=== PATIENT | female | born 1945 | race Caucasian/White ===

== ENCOUNTER 2023-08-01 13:12 | Outpatient (AMB) | payer MEDICARE, SELFPAY ==
[2023-08-01 13:41] VITALS: BP 122/58; PULSE 92; RESP 18; O2SAT 97; BMI 36.5
--- NOTE | 2023-08-01 13:41 | MHC.OFFVIS ---
Intake Vital Signs 08/01/23 13:41 Height 5 ft 6 in Weight 226 lb BMI 36.5 BP 122/58 L Blood Pressure Location Lt brachial Position Sitting Respiration 18 Pulse 92 Pulse Source Pulse Oximeter Pulse Oximetry (%) 97 Oxygen Delivery Method Room Air Intake Visit Reasons: Neuropathy Allergies No Known Allergies Allergy (Verified 08/01/23 13:41) HPI HPI Comments History of Present Illness Details Cherelle is a very pleasant 77-year-old female who presents the office today, accompanied by her daughter, for evaluation management of her chronic bilateral peripheral neuropathy. Patient reports that she has been suffering with this pain for many months. She endorses burning, numbness and tingling to both feet. It started on the bottom of her feet and is now up to the ankles. She endorses a feeling of a ?squishy? sensation to the bottom of her feet bilaterally as well. The patient has seen the transformation analyst, she has tried topical creams and sprays without improvement of her symptoms. She was recently started on diclofenac from her primary care doctor which provides her some relief. Pain today is rated a 5/10, intermittent and worse in the mornings and the middle the night. Terms of muscle damage condition is described as spasming, hot, burning, stabbing, sharp, tingling, shooting, cramping, throbbing, pins and needles. Pain is negatively impacting patient's general activity, mood, sleep and walking. Patient also reports bilateral knee pain, she has an appointment with orthopedic surgeon next month. She was seen in the PA there and has upcoming appointment with the surgeon in preparation for knee replacement surgery. Currently uses a wheelchair for ambulation. Patient is diabetic, taking Ozempic. Most recent A1c was 7.0 Review of Systems Const All systems reviewed & are unremarkable except as noted in HPI and below Physical Exam Vital Signs: Last Vital Signs Pulse 92 08/01/23 13:41 Resp 18 08/01/23 13:41 BP 122/58 L 08/01/23 13:41 Pulse Ox 97 08/01/23 13:41 Oxygen Delivery Method Room Air 08/01/23 13:41 BMI result Body Mass Index 36.5 General: awake, alert, oriented. Answers questions appropriately. Fully engaged in examination. Skin: warm, dry, intact. HEENT: Normocephalic. Hearing intact. Cardiac: External chest normal in appearance. Respiratory: No cough, audible wheezing or stridor. Abdomen: without gross distension. MS: No obvious swelling or deformities. Able to transition from sit to stand unassisted. Neurological: Oriented to person, place, time and situation. Thought process intact. Utilizes a wheelchair for ambulation Psychiatric: Appropriate mood and affect. Good judgment and insight. Bilateral feet: Light touch sensation intact. Skin intact without bruising, abrasions, wounds, ulcers or sores. Assessment & Plan Assessment & Plan (1) Diabetic neuropathy: Code(s): E11.40 - Type 2 diabetes mellitus with diabetic neuropathy, unspecified (2) Bilateral primary osteoarthritis of knee: Code(s): M17.0 - Bilateral primary osteoarthritis of knee (3) Diabetes: Code(s): E11.9 - Type 2 diabetes mellitus without complications Plan Cherelle presented to the office today for evaluation and management of her painful bilateral diabetic neuropathy. Discussed options for treatment including topical treatment, diagnostic interventional testing, epidural steroid injections, peripheral nerve stimulation with Sprint, RFA and more permanent neuromodulation. Informational pamphlets provided. Will submit PA for Qutenza topical application. Patient advised on procedure including preparation and EMLA application prior to appointment. She is aware treatment is done in office and he will be here for 30minutes during each visit. All questions and concerns have been answered and patient agrees with the plan. Patient aware she will be called to schedule appointment for Qutenza pending insurance approval. Coding Level of Care Code New Pt Level 4 (88451) Diagnoses Diabetic neuropathy E11.40 Bilateral primary osteoarthritis of knee M17.0 Diabetes E11.9
== END 2023-08-01 14:06 | disposition home or self-care (01) ==
PROVIDERS: PCP Internal Medicine; Visit Provider Registered Nurse Emergency
DX: E11.40 Type 2 diabetes mellitus with diabetic neuropathy, unspecified (principal); M17.0 Bilateral primary osteoarthritis of knee
CPT/HCPCS: 99204

== ENCOUNTER → 2023-08-01 13:12 | Outpatient (BNVA) | payer MEDICARE, SELFPAY | PROVIDERS: PCP Internal Medicine; Visit Provider Registered Nurse Emergency | DX: E11.42 Type 2 diabetes mellitus with diabetic polyneuropathy (principal); M17.0 Bilateral primary osteoarthritis of knee | CPT/HCPCS: 99202 ==

== ENCOUNTER 2023-09-26 13:59 | Outpatient (AMB) | payer MEDICARE, SELFPAY ==
[2023-09-26 14:06] VITALS: BP 137/64; PULSE 83; RESP 16; O2SAT 97; BMI 36.3
--- NOTE | 2023-09-26 14:06 | A.OFFVIS_ITS ---
Vital Signs 09/26/23 14:06 09/26/23 14:31 Height 5 ft 6 in Weight 225 lb BMI 36.3 BP 137/64 135/60 Blood Pressure Location Lt brachial Position Sitting Respiration 16 Pulse 83 Pulse Source Pulse Oximeter Pulse Oximetry (%) 97 Oxygen Delivery Method Room Air Intake Visit Reasons: Qutenza - 1st Treatment Allergies No Known Allergies Allergy (Verified 08/01/23 13:41) HPI Comments Details: Patient presents back to the office today for first Qutenza application. She is accompanied by her daughter Patient applied EMLA cream at home per instructions. He denies any changes in her painful bilateral peripheral neuropathy since last visit. Denies new meds, allergies or diagnoses. Patient denies any recent injuries or wounds to her feet. Prior: Cherelle is a very pleasant 77-year-old female who presents the office today, accompanied by her daughter, for evaluation management of her chronic bilateral peripheral neuropathy. Patient reports that she has been suffering with this pain for many months. She endorses burning, numbness and tingling to both feet. It started on the bottom of her feet and is now up to the ankles. She endorses a feeling of a ?squishy? sensation to the bottom of her feet bilaterally as well. The patient has seen the magnetic prospector, she has tried topical creams and sprays without improvement of her symptoms. She was recently started on diclofenac from her primary care doctor which provides her some relief. Pain today is rated a 5/10, intermittent and worse in the mornings and the middle the night. Terms of muscle damage condition is described as spasming, hot, burning, stabbing, sharp, tingling, shooting, cramping, throbbing, pins and needles. Pain is negatively impacting patient's general activity, mood, sleep and walking. Patient also reports bilateral knee pain, she has an appointment with orthopedic surgeon next month. She was seen in the PA there and has upcoming appointment with the surgeon in preparation for knee replacement surgery. Currently uses a wheelchair for ambulation. Patient is diabetic, taking Ozempic. Most recent A1c was 7.0 Review of Systems Const All systems reviewed & are unremarkable except as noted in HPI and below Physical Exam Vital Signs: Last Vital Signs Pulse 83 09/26/23 14:06 Resp 16 09/26/23 14:06 BP 137/64 09/26/23 14:06 Pulse Ox 97 05/10/24 14:06 Oxygen Delivery Method Room Air 09/26/23 14:06 BMI result Body Mass Index 36.3 General: awake, alert, oriented. Answers questions appropriately. Fully engaged in examination. Skin: Bilateral feet: Light touch sensation intact. No visible wounds, rashes, lesions, open areas. HEENT: Normocephalic. Hearing intact. Cardiac: External chest normal in appearance. Respiratory: No cough, audible wheezing or stridor. Abdomen: without gross distension. MS: No obvious swelling or deformities. Neurological: Oriented to person, place, time and situation. Thought process intact. No gait abnormalities appreciated. Psychiatric: Appropriate mood and affect. Good judgment and insight. Office Meds capsaicin-skin cleanser 8 % topical kit Performing Provider: Mari Segal APRN, CNP Performing Location: [facility] Administered by: Mari Segal APRN, CNP on 09/26/23 14:43 Dose Route Admin Location Dispensed Lot Number Expiration Date [facility] [employer] 4 ea topical 4 ea [id number] 10/17/25 50528-680-65 [employer] Comments: Patient applied topical EMLA cream to both feet prior to arrival for her scheduled appointment. Feet exposed, no wounds, rashes or breaks in skin noted. Light touch sensation intact bilaterally. Four single use topical patches (179mg capsaicin) divided between feet, 2 patches per foot, wrapped and secured per package instructions. Patient monitored throughout the procedure with BP checks every 15 minutes. She tolerated the 30 minute application well. Assessment & Plan Assessment & Plan (1) Diabetic neuropathy: Code(s): E11.40 - Type 2 diabetes mellitus with diabetic neuropathy, unspecified Category: Medical Plan Patient presented to the office today for 1st Qutenza topical application for bilateral peripheral neuropathy. Qutenza application as per above. Patient tolerated well, discharged home with no reported untoward effects. Cleansing gel applied prior to discharge, patient given cleansing gel for home use if needed. Lidocaine 5% topical gel, apply to feet at bedtime. All questions and concerns were answered. Patient will follow up in the office as planned for next Qutenza application. Orders: Orders AMB Capsaicin Patch - Practice Supplied Today E11.40 - Type 2 diabetes mellitus with diabetic neuropathy, unspecified Medications: New lidocaine 5% 1 appl topical BEDTIME 30 grams 0RF Coding Level of Care Code Est Pt Level 4 (75959) Diagnoses Diabetic neuropathy E11.40
[2023-09-26 14:31] VITALS: BP 135/60
== END 2023-09-26 15:10 | disposition home or self-care (01) ==
PROVIDERS: PCP Internal Medicine; Visit Provider Registered Nurse Emergency
DX: E11.40 Type 2 diabetes mellitus with diabetic neuropathy, unspecified (principal)
CPT/HCPCS: 17999; 99214

== ENCOUNTER → 2023-09-26 13:59 | Outpatient (BNVA) | payer MEDICARE, SELFPAY | PROVIDERS: PCP Internal Medicine; Visit Provider Registered Nurse Emergency | DX: E11.40 Type 2 diabetes mellitus with diabetic neuropathy, unspecified (principal) | CPT/HCPCS: 17999; 99212; J7336 ==

== ENCOUNTER 2023-12-19 13:52 | Outpatient (AMB) | payer MEDICARE, SELFPAY ==
--- NOTE | 2023-12-19 13:53 | MHC.OFFVIS ---
Vital Signs 12/19/23 13:59 12/19/23 14:32 12/19/23 14:46 Height 5 ft 6 in Weight 218 lb BMI 35.2 BP 151/68 H 129/61 136/65 Blood Pressure Location Lt brachial Lt brachial Lt brachial Position Sitting Sitting Sitting Pulse 91 87 79 Pulse Source Pulse Oximeter Pulse Oximeter Pulse Oximeter Pulse Oximetry (%) 98 98 98 Oxygen Delivery Method Room Air Room Air Room Air Comment 15 mins after qutenza application 30 mins after qutenza application Intake Visit Reasons: QUTENZA Intake Note: Pain today 10/26 Lead Sustainability Specialist Required: No Accompanied by: Family/Other Allergies No Known Allergies Allergy (Verified 12/19/23 14:00) HPI Comments Details: Patient presents back to the office today for second Qutenza application. She is accompanied by her daughter Patient forgot to apply the EMLA cream at home. Offered to reschedule appointment due to risk of procedural discomfort. Patient would like to proceed and will immediately notify staff if she has not able to tolerate the full 30 minutes of the procedure. Does endorse some discomfort/burning after arriving home after her 1st Qutenza application. Applied the cleansing gel that was sent home, soaked her feet and milk and took duloxetine. Symptoms improve with duloxetine, she has requesting a refill. She denies any changes in her painful bilateral peripheral neuropathy since last visit. A1c 11/2023 was 8.3. Her Ozempic was increased to 1 mg/week. Patient denies any recent injuries or wounds to her feet. Prior: Cherelle is a very pleasant 77-year-old female who presents the office today, accompanied by her daughter, for evaluation management of her chronic bilateral peripheral neuropathy. Patient reports that she has been suffering with this pain for many months. She endorses burning, numbness and tingling to both feet. It started on the bottom of her feet and is now up to the ankles. She endorses a feeling of a ?squishy? sensation to the bottom of her feet bilaterally as well. The patient has seen the livestock yard attendant, she has tried topical creams and sprays without improvement of her symptoms. She was recently started on diclofenac from her primary care doctor which provides her some relief. Pain today is rated a 5/10, intermittent and worse in the mornings and the middle the night. Terms of muscle damage condition is described as spasming, hot, burning, stabbing, sharp, tingling, shooting, cramping, throbbing, pins and needles. Pain is negatively impacting patient's general activity, mood, sleep and walking. Patient also reports bilateral knee pain, she has an appointment with orthopedic surgeon next month. She was seen in the PA there and has upcoming appointment with the surgeon in preparation for knee replacement surgery. Currently uses a wheelchair for ambulation. Patient is diabetic, taking Ozempic. Most recent A1c was 7.0 Review of Systems Const All systems reviewed & are unremarkable except as noted in HPI and below Physical Exam Vital Signs: Last Vital Signs Pulse 87 12/19/23 14:32 BP 129/61 12/19/23 14:32 Pulse Ox 98 12/19/23 14:32 Oxygen Delivery Method Room Air 12/19/23 14:32 BMI result Body Mass Index 35.2 Office Procedures Topical Capsaicin Date 1:: 09/26/23 Date 2:: 12/19/23 Laterality: Bilateral Quality of pain: Burning Office Meds capsaicin-skin cleanser 8 % topical kit Performing Provider: Mari Segal APRN, CNP Performing Location: [facility] Administered by: Mari Segal APRN, CNP on 12/19/23 14:11 Dose Route Admin Location Dispensed Lot Number Expiration Date [facility] [employer] 4 ea topical 4 ea [id number] 11/16/25 28827-424-16 [employer] Comments: Feet exposed, no wounds, rashes or breaks in skin noted. Light touch sensation intact bilaterally. Four single use topical patches (179mg capsaicin) divided between feet, 2 patches per foot, wrapped and secured per package instructions. Patient monitored throughout the procedure with BP checks every 15 minutes. She tolerated the 30 minute application well. Assessment & Plan Assessment & Plan (1) Diabetic neuropathy: Code(s): E11.40 - Type 2 diabetes mellitus with diabetic neuropathy, unspecified Category: Medical Plan Patient presented to the office today for 2nd Qutenza topical application for bilateral peripheral neuropathy. Qutenza application as per above. Patient tolerated well, discharged home with no reported untoward effects. Cleansing gel applied prior to discharge, patient given cleansing gel for home use if needed. Refill sent on duloxetine. EMLA cream refilled for next Qutenza application. All questions and concerns were answered. Patient will follow up in the office as planned for next Qutenza application. Orders: Orders AMB Capsaicin Patch - Practice Supplied Today E11.40 - Type 2 diabetes mellitus with diabetic neuropathy, unspecified Medications: Refilled duloxetine 20 mg PO BID 60 caps 3RF lidocaine-prilocaine 2.5-2.5 % cleanse feet thoroughly, apply to both feet 30 minutes prior to appointment. 1 appl topical ONCE 30 grams 0RF preprocedure Coding Level of Care Code Est Pt Level 4 (40178) Diagnoses Diabetic neuropathy E11.40
[2023-12-19 13:59] VITALS: BP 151/68; PULSE 91; O2SAT 98; BMI 35.2
[2023-12-19 14:32] VITALS: BP 129/61; PULSE 87; O2SAT 98
[2023-12-19 14:46] VITALS: BP 136/65; PULSE 79; O2SAT 98
== END 2023-12-19 14:54 | disposition home or self-care (01) ==
PROVIDERS: PCP Internal Medicine; Visit Provider Registered Nurse Emergency
DX: E11.40 Type 2 diabetes mellitus with diabetic neuropathy, unspecified (principal)
CPT/HCPCS: 17999; 99214

== ENCOUNTER → 2023-12-19 13:52 | Outpatient (BNVA) | payer MEDICARE, SELFPAY | PROVIDERS: PCP Internal Medicine; Visit Provider Registered Nurse Emergency | DX: E11.40 Type 2 diabetes mellitus with diabetic neuropathy, unspecified (principal) | CPT/HCPCS: 17999; 99212; J7336 ==

== ENCOUNTER 2024-05-28 13:15 | Outpatient (AMB) | payer MEDICARE, SELFPAY ==
--- NOTE | 2024-05-28 13:18 | A.OFFVIS_ITS ---
Vital Signs 05/28/24 13:30 Height 5 ft 6 in Weight 203 lb BMI 32.8 Pulse 112 H Pulse Source Pulse Oximeter Pulse Oximetry (%) 98 Oxygen Delivery Method Room Air Intake Visit Reasons: Abnormal CT scan Sparmaker Required: No Branch Sales Manager: Branch Sales Manager offered & declined Accompanied by: Daughter Allergies No Known Allergies Allergy (Verified 05/28/24 13:34) Medication List - Last Reconciled 05/28/24 by Elizabet Osorio LPN amlodipine 10 mg PO DAILY anastrozole 1 mg PO DAILY buspirone 30 mg PO BID citalopram 30 mg PO DAILY duloxetine 20 mg PO BID lidocaine 5% 1 appl topical BEDTIME lidocaine-prilocaine 2.5-2.5 % 1 appl topical ONCE semaglutide (Ozempic) 1 mg subcut QWEEK simvastatin 40 mg PO DAILY tizanidine 2 mg PO Q6-8H PRN trazodone 100 mg PO BEDTIME PRN HPI HPI Abnormal CT scan: Details: Cherelle is a pleasant 78 year old female, former smoker, quit 2019 with approximately 10 pack year history with underlying h/o breast cancer s/p left lumpectomy 2018 and right lumpectomy 2000 and radiation maintained on anastrozole, HTN, DMII, HLD and anxiety. She was referred by PCP for pulmonary evaluation after incidental finding on abdominal CT. CT abdomen performed in 05/11/24 revealed LLL nodule measuring 1.3 cm. She denies prior abnormal chest CT. She currently follows with oncology through [facility]. She currently denies any respiratory symptoms. She denies h/o asthma. She denies any occupational exposures, however did live near [facility] x 50 years. She denies any pertinent family history. [facility] Social History (Updated 05/28/24 @ 13:41 by Elizabet Osorio LPN) Cigarettes Per Day: 4 Years Smoked: 35 years/ Quit 2020 in June Review of Systems Const Denies chills, Denies excessive sweating, Denies fever(s), Denies headache(s) and Denies night sweats Eyes Denies dry eyes, Denies irritation and Denies itchy eyes ENT Reports Normal hearing present, Denies headache(s), Denies nasal congestion, Denies nasal discharge, Denies post nasal drip and Denies sore throat Card Denies chest pain, Denies chest pain at rest, Denies chest pain with activity, Denies claudication, Denies leg edema, Denies dyspnea, Denies dyspnea on exertion, Denies orthopnea and Denies paroxysmal nocturnal dyspnea Resp Denies chest congestion, Denies cough, Denies excessive phlegm production, Denies pain on inspiration, Denies pain with cough, Denies dyspnea, Denies dyspnea on exertion, Denies stridor and Denies wheezing Musc Denies myalgias Neuro Reports Normal hearing present and Denies headache(s) Endo Denies excessive sweating Gustavo/Lymph Denies lymphadenopathy Aller/Immun Denies itchy eyes, Denies seasonal rhinorrhea and Denies wheezing Physical Exam Vital Signs: Last Vital Signs Pulse 112 H 05/28/24 13:30 Pulse Ox 98 05/28/24 13:30 Oxygen Delivery Method Room Air 05/28/24 13:30 BMI result Body Mass Index 32.8 Const General: cooperative, healthy appearing, comfortable, no acute distress, well developed and alert Nutritional Appearance: obese Orientation/consciousness: patient oriented x3 Limitations: wheelchair HEENT Head: Yes normal to inspection, Yes normocephalic and Yes atraumatic Ears: hearing grossly normal bilaterally and external ears normal Eyes General: appearance normal, both eyes and all related structures Eyelids: Yes eyelids normal Sclerae: sclerae normal EOM: EOMs intact bilaterally Neck Neck: Yes normal visual inspection and Yes no lymphadenopathy Lymphatic: no lymphadenopathy noted Chest Chest palpation & inspection: normal inspection of the chest Resp Effort & Inspection: normal respiratory effort, able to speak in complete sentences, no audible wheezes, no cough, no stridor, not tachypneic, no tripod positioning and no use of accessory muscles Auscultation: clear to auscultation bilaterally Cardio Jugular venous distension: no JVD Rate: regular rate Rhythm: regular rhythm Skin Other: warm, dry General skin exam: no rashes or lesions noted Neuro General: patient oriented x3 Cranial nerves: Yes Normal hearing present Cognition (Neuro): normal cognition Extrem General: Yes normal to inspection, Yes capillary refill normal, Yes no clubbing, cyanosis or edema and Yes no pedal edema Psych Appearance: grossly normal and well kempt Speech and movement: Normal speech and movement present and Clear speech present Affect: normal affect Attitude: cooperative Thought process: Normal thought process present Thought content: Normal thought content present Insight: Good insight present (Psych) Judgement: Good judgement present (Psych) Assessment & Plan Assessment & Plan (1) Pulmonary nodule 1 cm or greater in diameter: Code(s): R91.1 - Solitary pulmonary nodule Category: Medical (2) History of bilateral breast cancer: Code(s): Z85.3 - Personal history of malignant neoplasm of breast Category: Medical Plan Cherelle presents for pulmonary evaluation after incidental finding of solid LLL pulmonary nodule measuring 1.1 x 1.5 cm and h/o bilateral breast cancer. Will send for dedicated chest CT to assess for any other concerning pulmonary nodules, then likely obtain PET versus CT guided biopsy. Once resulted, will discuss at multidisciplinary conference and call patient with further treatment plans. All questions were answered and patient is in agreement of plan. Orders: Orders CT chest wo IV con Today R91.1 - Solitary pulmonary nodule, Z85.3 - Personal history of malignant neoplasm of breast Coding Level of Care Code New Pt Level 3 (81239) Diagnoses Pulmonary nodule 1 cm or greater in diameter R91.1 History of bilateral breast cancer Z85.3
[2024-05-28 13:30] VITALS: PULSE 112; O2SAT 98; BMI 32.8
== END 2024-05-28 14:08 | disposition home or self-care (01) ==
PROVIDERS: PCP Internal Medicine; Referring Provider Physician Assistant Medical; Visit Provider Nurse Practitioner Family
DX: R91.1 Solitary pulmonary nodule (principal); Z85.3 Personal history of malignant neoplasm of breast
CPT/HCPCS: 99203

== ENCOUNTER → 2024-05-28 13:15 | Outpatient (BNVA) | payer MEDICARE, SELFPAY | PROVIDERS: PCP Internal Medicine; Referring Provider Physician Assistant Medical; Visit Provider Nurse Practitioner Family | DX: R91.1 Solitary pulmonary nodule (principal); Z85.3 Personal history of malignant neoplasm of breast | CPT/HCPCS: 99202 ==

== ENCOUNTER 2024-07-02 14:25 | Outpatient (REF) | payer MEDICARE, SELFPAY ==
--- NOTE | ~2024-07-02 | CT_ITS ---
EXAMINATION: CT CHEST WITHOUT CONTRAST CLINICAL INFORMATION: Solitary pulmonary nodule, history of bilateral breast CA. COMPARISON: Abdomen and pelvis CT from [facility] 05/11/2024. TECHNIQUE: Multidetector volumetric CT imaging of the chest was done. Axial MIP volume rendering provided. Sagittal and coronal reformatted images were obtained. This CT examination was performed using dose optimization techniques as appropriate, variously including the following: *Automated exposure control *Adjustment of mA and/or kV according to patient size (this includes techniques or standardized protocols for targeted exams where dose is matched to indication/reason for exam; i.e. extremities or head) *Use of iterative reconstruction technique FINDINGS: LUNGS: Mild respiratory motion in the lower lungs mildly limits evaluation. There is a lobulated 1.5 cm nodule in the lateral basal segment left lower lobe. This appears unchanged in morphology and size when compared with 05/11/2024 CT exam of the abdomen. Variable Hounsfield unit measurements within this nodule, measuring approximately -10. This may indicate the presence of fat, and hence hamartoma. Cannot evaluate more definitively due to motion. There is a 4 mm nodule in the superior major fissure, triangular in shape, consistent with intrapulmonary lymph node (series 3, image 50). There is a 5 mm lingular nodule laterally (series 3, image 84). This appears unchanged. 3 mm nodule in the lateral left lower lobe, unchanged (series 3, image 99). 3 mm nodule in the left upper lobe laterally (series 3, image 71), previously not imaged. There is mild right upper lobe bronchiectasis. Central airways are patent and normal. No pneumothorax. MEDIASTINUM: There is global thyroid enlargement without discrete nodule. No abnormal mediastinal lymphadenopathy or mass. Aorta is normal in caliber with mild to moderate atheromatous calcification. Main pulmonary artery is mildly prominent but within normal limits. Heart size is normal. There is abundant mitral annular calcification. Mildly patulous esophagus. CORONARY ARTERY CALCIFICATION: Mild to moderate four-vessel coronary calcification most notable in the LAD. PLEURA: There is no pleural effusion. No pleural mass or thickening. AXILLA/CHEST WALL: No lymphadenopathy. No mass. Postoperative changes right breast with surgical clips right axilla. Breasts are incompletely imaged. UPPER ABDOMEN: Small type I hiatus hernia. Gastric banding device in place, appears normally positioned. Normal unenhanced liver and gallbladder. Normal spleen and adrenal glands. OSSEOUS STRUCTURES: There is mild osteopenia. There are degenerative spinal changes. There is no suspicious lytic or blastic bone lesion. CT/CT chest wo IV con IMPRESSION: 1. Allowing for respiratory motion, no significant change in the appearance or size of a dominant left lower lobe lobular nodule measuring 1.4 cm. This measures low density in Hounsfield units, and may represent a hamartoma. Unfortunately respiratory motion precludes definitive evaluation for attenuation. Continued close interval follow-up recommended. 2. There are a few additional scattered nodules measuring up to 5 mm in the lingula, which were either not previously imaged, or are stable. The lingular nodule is stable. Continued close interval follow-up recommended. 3. Focal bronchiectasis in the right upper lobe. 4. Lungs otherwise clear without active disease. 5. Gastric banding device in place. Small hiatus hernia. Electronically signed by: Juan Valencia MD 07/02/2024 03:26 PM [facility]
--- OUTSIDE RECORDS SUMMARY | 2024-07-02 14:27 | XMS_ITS | Clinical Summary ---
Author Organization [address] Address [address] [place] [id number] Phone Care Team Providers Care Physician Relations Specialist Name Role Phone Chencho Bermudez MD Primary Care Provider [phone] Medical History Medical History Date Comments Diabetes mellitus type 2, co ntrolled, with complications (CMS/HCC) DX:Diabetes mellitus type 2, controlled, with complications (HCC) Constipation DX:Constipation Change in bowel habits DX:Change in bowel habits Social History Tobacco Use Types Packs/Day Years Used Date Smoking Tobacco: Never Assessed Comments Unknown Sex and Gender Information Value Date Recorded Sex Assigned at Not on file Legal Sex Female 8:30 PM EST Gender Identity Not on file Sexual Orientation Not on file Obstetrics History Last Filed Vital Signs Vital Sign Reading Time Taken Comments Blood Pressure 134/66 06/16/2023 11:37 AM EST Pulse 91 06/16/2023 11:37 AM EST Temperature - - Respiratory Rate - - Oxygen Saturation - - Inhaled Oxygen Concentration - - Weight 103 kg (226 lb 8 oz) 06/16/2023 11:37 AM EST Height 167.6 cm (5' 6 ) 06/16/2023 11:37 AM EST Body Mass Index 36.56 06/16/2023 11:37 AM EST Plan of Treatment Health Maintenance Due Date Last Done Comments COVID-19 Vaccine (#1) 1950 Pneumococcal Vaccine: 50+ Ye ars (1 of 2 - PCV) 10/15/1951 DTaP,Tdap,and Td Vaccines (1 - Tdap) 1964 Zoster Vaccines (1 of 2) 10/15/1995 RSV Immunization Patients 60 + Years Old (1 - 1-dose 75+ series) 2020 Depression Screening 06/13/2023 Falls Risk Assessment 06/13/2023 Hepatitis C Screening 06/13/2023 Osteoporosis Screening (Bone Density Screening) 06/13/2023 Social Influencers of Health Screening 06/13/2023 Influenza Vaccine (#1) 2024 HIB Vaccines Aged Out No longer eligi ble based on patient's age to complete this topic HPV Vaccines Aged Out No longer eligi ble based on patient's age to complete this topic Hepatitis A Vaccines Aged Out No long er eligible based on patient's age to complete this topic Hepatitis B Vaccines Aged Out No long er eligible based on patient's age to complete this topic IPV Vaccines Aged Out No longer eligi ble based on patient's age to complete this topic MMR Vaccines Aged Out No longer eligi ble based on patient's age to complete this topic Meningococcal ACWY Vaccine Aged Out N o longer eligible based on patient's age to complete this topic RSV Immunization Patients Un claudio 20 months Aged Out No longer eligible b ased on patient's age to complete this topic Varicella Vaccines Aged Out No longer eligible based on patient's age to complete this topic Care Teams Physician Relations Specialist Relationship Specialty Start Date End Date Chencho Bermudez MD [address] PCP - General 03/19/23
--- OUTSIDE RECORDS SUMMARY | 2024-07-02 14:27 | XMS_ITS ---
Author Organization [facility] Address Unknown Problems Problem Status Start Date End Date DISPLACED OBLIQUE FRACTURE O F SHAFT OF LEFT FIBULA, SUBSEQUENT ENCOUNTER FOR CLOSED FRACTURE WITH ROUTINE HEALING (Primary) (S82.432D - ICD-10-CM) ACTIVE 08/25/2022 MUSCLE WEAKNESS (GENERALIZED) (M62.81 - ICD-10-CM) ACT MAGGIE 08/25/2022 DIFFICULTY IN WALKING, NOT E LSEWHERE CLASSIFIED (R26.2 - ICD-10-CM) ACTIVE 08/25/2022 CHRONIC KIDNEY DISEASE, STAGE 3A (N18.31 - ICD-10-CM) ACTIVE 08/25/2022 MALIGNANT NEOPLASM OF UNSPEC IFIED SITE OF RIGHT FEMALE BREAST (C50.911 - ICD-10-CM) ACTIVE 08/25/2022 POST-TRAUMATIC STRESS DISORD ER, CHRONIC (F43.12 - ICD-10-CM) ACTIVE 08/25/2022 DEPRESSION, UNSPECIFIED (F32.A - ICD-10-CM) ACTIVE 08/25/2022 TYPE 2 DIABETES MELLITUS WIT HOUT COMPLICATIONS (E11.9 - ICD-10-CM) ACTIVE 08/25/2022 UNSPECIFIED FALL, SEQUELA (W19.XXXS - ICD-10-CM) ACTIV E 08/25/2022 Encounters Encounter Performer Performer Role Encounter Diagnoses Location Date Discharge - Discharged to home or self care - skilled nursing [facility] 08/25/2022 06:05 pm EDT - 10/02/2022 02:46 pm EDT Immunizations Vaccine Date Influenza 02/24/2022 12:00 am EDT SARS-COV-2 (COVID-19) 08/24/2020 12:00 a m EDT SARS-COV-2 (COVID-19) 08/03/2020 12:00 a m EDT SARS-COV-2 (COVID-19 BOOSTER) 02/24/2022 12:00 am EDT SARS-COV-2 (COVID-19 BOOSTER) 03/01/2021 12:00 am EDT Social History
--- OUTSIDE RECORDS SUMMARY | 2024-07-02 14:27 | XMS_ITS | Encounter Summary ---
Author Organization [facility] Address [address] [place] [address] Care Team Providers Care Film Drying Machine Operator Name Role Phone Chencho Bermudez MD Primary Care Provider [phone] Encounter Details Date Type Department Care Team (Late st Contact Info) Description 03/22/2024 Lab Requisition [facility] - Main Lab [address] [place] [address] MD [address] [place] [id number] Acquired absence of right knee Social History Tobacco Use Types Packs/Day Years Used Date Smoking Tobacco: Never Assessed Comments Unknown Sex and Gender Information Value Date Recorded Sex Assigned at Not on file Legal Sex Female 8:30 PM EST Gender Identity Not on file Sexual Orientation Not on file documented as of this encounter Plan of Treatment Not on file documented as of this encounter Procedures Procedure Name Priority Date/Time Associated Diagnosis Comments COMPLETE BLOOD COUNT Routine 03/22/2024 6:00 AM EST Acquired absence of right knee BASIC METABOLIC PANEL Routine 03/22/2024 6:00 AM EST Acquired absence of right knee documented in this encounter Results * (ABNORMAL) Complete blood count (03/22/2024 6:00 AM EST) WBC 5.7 4.8 - 10.8 K/[facility] LAB HEMETOLOGY METHOD 03/22/2024 12:37 PM EST [facility] RBC 3.50(L) 3.80 - 4.80 M/[facility] LAB HEMETOLOGY METHOD 03/22/2024 12:37 PM [facility] LAB Hemoglobin 9.8(L) 11.5 - 16.0 g/dL LAB HEMETOLOGY METHOD 03/22/2024 12:37 PM [facility] LAB Hematocrit 32.3(L) 35.0 - 47.0 % LAB HEMETOLOGY METHOD 03/22/2024 12:37 PM [facility] LAB MCV 91.5 79.0 - 98.0 FL LAB HEMETOLOGY METHOD 03/22/2024 12:37 PM [facility] LAB MCH 27.8 27.0 - 32.0 pcg LAB HEMETOLOGY METHOD 03/22/2024 12:37 PM [facility] LAB MCHC 30.3(L) 32.0 - 37.0 g/dL LAB HEMETOLOGY METHOD 03/22/2024 12:37 PM [facility] LAB RDW 12.8 11.0 - 15.0 % LAB HEMETOLOGY METHOD 03/22/2024 12:37 PM [facility] LAB Platelets 274 130 - 400 K/mcL LAB HEMETOLOGY METHOD 03/22/2024 12:37 PM [facility] LAB MPV 9.7 7.0 - 11.0 FL LAB HEMETOLOGY METHOD 03/22/2024 12:37 PM [facility] LAB NRBC 0.0 <1.0 % LAB HEMETOLOGY METHOD 03/22/2024 12:37 PM [facility] LAB NRBC Absolute 0.00 <0.10 K/mcL LAB HEMETOLOGY METHOD 03/22/2024 12:37 PM [facility] LAB Blood Venous blood specimen / Unknown Venipuncture / Unknown 03/22/2024 6:00 AM EST 03/22/2024 12:05 PM EST us Piyush Street MD LAB BLOOD ORDERABLES Final Res ult [facility] LAB [address] [place] [address], * (ABNORMAL) Basic metabolic panel (03/22/2024 6:00 AM EST) Sodium 140 133 - 145 mmol/L LAB CHEMISTRY METHOD 03/22/2024 1:25 PM [facility] LAB Potassium 4.4 3.5 - 5.5 mmol/L LAB CHEMISTRY METHOD 03/22/2024 1:25 PM [facility] LAB Chloride 103 96 - 110 mmol/L LAB CHEMISTRY METHOD 03/22/2024 1:25 PM [facility] CO2 30 21 - 32 mmol/L LAB CHEMISTRY METHOD 03/22/2024 1:25 PM [facility] Anion Gap 7 3 - 11 LAB CHEMISTRY METHOD 03/22/2024 1:25 PM [facility] Glucose 78 70 - 100 mg/dL LAB CHEMISTRY METHOD 03/22/2024 1:25 PM [facility] BUN 20 5 - 25 mg/dL LAB CHEMISTRY METHOD 03/22/2024 1:25 PM [facility] LAB Creatinine 1.37(H) 0.50 - 1.10 mg/dL LAB CHEMISTRY METHOD 03/22/2024 1:25 PM [facility] LAB eGFR 40(L) >=60 mL/min/1. 73m2 LAB CHEMISTRY METHOD 03/22/2024 1:25 PM [facility] LAB Comment:Calculation based on the??Chronic Kidney Disease Epidemiology Collaboration (CKD-EPI) equation refit??without adjustment for race. BUN/Creatinine Ratio 14.6 LAB CHEMISTRY METHOD 03/22/2024 1:25 PM [facility] Calcium 9.1 8.5 - 10.5 mg/dL LAB CHEMISTRY METHOD 03/22/2024 1:25 PM [facility] Blood Venous blood specimen / Unknown Venipuncture / Unknown 03/22/2024 6:00 AM EST 03/22/2024 12:05 PM EST us Piyush Street MD LAB BLOOD ORDERABLES Final Res ult [facility] ([facility] [address] [place] [address], documented in this encounter Visit Diagnoses Diagnosis Acquired absence of right knee documented in this encounter Care Teams Film Drying Machine Operator Relationship Specialty Start Date End Date Chencho Bermudez MD [address] [facility] [address] PCP - General 03/19/23 documented as of this encounter
== END 2024-07-02 14:26 | disposition home or self-care (01) ==
LOC: HO.CT 14:25
PROVIDERS: PCP Internal Medicine; Visit Provider Nurse Practitioner Family
DX: R91.1 Solitary pulmonary nodule (principal); Z85.3 Personal history of malignant neoplasm of breast
CPT/HCPCS: 71250

== ENCOUNTER → 2024-07-02 14:27 | Outpatient (BNV) | payer MEDICARE, SELFPAY | PROVIDERS: PCP Internal Medicine; Visit Provider Radiology Diagnostic Radiology | DX: R91.1 Solitary pulmonary nodule (principal) | CPT/HCPCS: 71250 ==

== ENCOUNTER 2024-07-21 15:49 | Outpatient (AMB) | payer MEDICARE, SELFPAY ==
--- NOTE | 2024-07-21 15:54 | MHC.OFFVIS ---
Vital Signs 07/21/24 15:58 Height 5 ft 6 in Weight 209 lb BMI 33.7 BP 140/64 H Blood Pressure Location Lt brachial Position Sitting Pulse 97 Pulse Source Pulse Oximeter Pulse Oximetry (%) 97 Oxygen Delivery Method Room Air Intake Visit Reasons: pulmonary nodule Caustics Loader Required: No Finishing Supervisor: Finishing Supervisor offered & declined Accompanied by: Daughter Allergies No Known Allergies Allergy (Verified 07/21/24 16:01) Medication List - Last Reconciled 07/21/24 by Elizabet Osorio LPN amlodipine 10 mg PO DAILY anastrozole 1 mg PO DAILY buspirone 30 mg PO BID citalopram 30 mg PO DAILY duloxetine 40 mg PO BID lidocaine 5% 1 appl topical BEDTIME lidocaine-prilocaine 2.5-2.5 % 1 appl topical ONCE semaglutide (Ozempic) 1 mg subcut QWEEK simvastatin 40 mg PO DAILY tizanidine 2 mg PO Q6-8H PRN trazodone 100 mg PO BEDTIME PRN HPI HPI pulmonary nodule: Details: Cherelle is a pleasant 78 year old female, former smoker, quit 2019 with approximately 10 pack year history with underlying h/o breast cancer s/p left lumpectomy 2018 and right lumpectomy 2000 and radiation maintained on anastrozole, HTN, DMII, HLD and anxiety. Today she is accompanied by her daughter. She was initially referred by PCP for pulmonary evaluation after incidental finding on abdominal CT. CT abdomen performed in 05/11/24 revealed LLL nodule measuring 1.3 cm. She denies prior abnormal chest CT. She currently follows with oncology through [facility]. She continues to deny any respiratory symptoms. At the last visit, she was sent for dedicated chest CT and presents today to review results. She denies any visits to urgent care since the last visit related to respiratory distress. She does note she contracted COVID19 however recovered at home without any respiratory symptoms. [facility] Social History Cigarettes Per Day: 4 Years Smoked: 35 years/ Quit 2019 in June Review of Systems Const Denies chills, Denies excessive sweating, Denies fever(s), Denies headache(s) and Denies night sweats Eyes Denies dry eyes, Denies irritation and Denies itchy eyes ENT Reports Normal hearing present, Denies headache(s), Denies nasal congestion, Denies nasal discharge, Denies post nasal drip and Denies sore throat Card Denies chest pain, Denies chest pain at rest, Denies chest pain with activity, Denies claudication, Denies leg edema, Denies dyspnea, Denies dyspnea on exertion, Denies orthopnea and Denies paroxysmal nocturnal dyspnea Resp Denies chest congestion, Denies cough, Denies excessive phlegm production, Denies pain on inspiration, Denies pain with cough, Denies dyspnea, Denies dyspnea on exertion, Denies stridor and Denies wheezing Musc Denies myalgias Neuro Reports Normal hearing present and Denies headache(s) Endo Denies excessive sweating Gustavo/Lymph Denies lymphadenopathy Aller/Immun Denies itchy eyes, Denies seasonal rhinorrhea and Denies wheezing Physical Exam Vital Signs: Last Vital Signs Pulse 97 07/21/24 15:58 BP 140/64 H 07/21/24 15:58 Pulse Ox 97 07/21/24 15:58 Oxygen Delivery Method Room Air 07/21/24 15:58 BMI result Body Mass Index 33.7 Const General: cooperative, healthy appearing, comfortable, no acute distress, well developed and alert Nutritional Appearance: obese Orientation/consciousness: patient oriented x3 Limitations: wheelchair HEENT Head: Yes normal to inspection, Yes normocephalic and Yes atraumatic Ears: hearing grossly normal bilaterally and external ears normal Eyes General: appearance normal, both eyes and all related structures Eyelids: Yes eyelids normal Sclerae: sclerae normal EOM: EOMs intact bilaterally Neck Neck: Yes normal visual inspection and Yes no lymphadenopathy Lymphatic: no lymphadenopathy noted Chest Chest palpation & inspection: normal inspection of the chest Resp Effort & Inspection: normal respiratory effort, able to speak in complete sentences, no audible wheezes, no cough, no stridor, not tachypneic, no tripod positioning and no use of accessory muscles Auscultation: clear to auscultation bilaterally Cardio Jugular venous distension: no JVD Rate: regular rate Rhythm: regular rhythm Skin Other: warm, dry General skin exam: no rashes or lesions noted Neuro General: patient oriented x3 Cranial nerves: Yes Normal hearing present Cognition (Neuro): normal cognition Extrem General: Yes normal to inspection, Yes capillary refill normal, Yes no clubbing, cyanosis or edema and Yes no pedal edema Psych Appearance: grossly normal and well kempt Speech and movement: Normal speech and movement present and Clear speech present Affect: normal affect Attitude: cooperative Thought process: Normal thought process present Thought content: Normal thought content present Insight: Good insight present (Psych) Judgement: Good judgement present (Psych) Results Reviewed Results Reviewed: [address] [address] [address] Scan Report Signed Patient: Cherelle Pearl MR#: [id number] : 1945 Acct:[id number] Age/Sex: 78 / F ADM Date: 07/02/24 Loc: HO.CT Attending Dr: Nataly Cash NP Ordering Physician: Nataly Cash NP Date of Service: 07/02/24 Procedure(s): CT chest wo IV con Accession Number(s): [id number] cc: Chencho Bermudez MD; Nataly Cash NP~ Report Number: [id number]: Total DLP = 272.00 mGy-cm EXAMINATION: CT CHEST WITHOUT CONTRAST CLINICAL INFORMATION: Solitary pulmonary nodule, history of bilateral breast CA. COMPARISON: Abdomen and pelvis CT from [facility] 05/11/2024. TECHNIQUE: Multidetector volumetric CT imaging of the chest was done. Axial MIP volume rendering provided. Sagittal and coronal reformatted images were obtained. This CT examination was performed using dose optimization techniques as appropriate, variously including the following: *Automated exposure control *Adjustment of mA and/or kV according to patient size (this includes techniques or standardized protocols for targeted exams where dose is matched to indication/reason for exam; i.e. extremities or head) *Use of iterative reconstruction technique FINDINGS: LUNGS: Mild respiratory motion in the lower lungs mildly limits evaluation. There is a lobulated 1.5 cm nodule in the lateral basal segment left lower lobe. This appears unchanged in morphology and size when compared with 05/11/2024 CT exam of the abdomen. Variable Hounsfield unit measurements within this nodule, measuring approximately -10. This may indicate the presence of fat, and hence hamartoma. Cannot evaluate more definitively due to motion. There is a 4 mm nodule in the superior major fissure, triangular in shape, consistent with intrapulmonary lymph node (series 3, image 50). There is a 5 mm lingular nodule laterally (series 3, image 84). This appears unchanged. 3 mm nodule in the lateral left lower lobe, unchanged (series 3, image 99). 3 mm nodule in the left upper lobe laterally (series 3, image 71), previously not imaged. There is mild right upper lobe bronchiectasis. Central airways are patent and normal. No pneumothorax. MEDIASTINUM: There is global thyroid enlargement without discrete nodule. No abnormal mediastinal lymphadenopathy or mass. Aorta is normal in caliber with mild to moderate atheromatous calcification. Main pulmonary artery is mildly prominent but within normal limits. Heart size is normal. There is abundant mitral annular calcification. Mildly patulous esophagus. CORONARY ARTERY CALCIFICATION: Mild to moderate four-vessel coronary calcification most notable in the LAD. PLEURA: There is no pleural effusion. No pleural mass or thickening. AXILLA/CHEST WALL: No lymphadenopathy. No mass. Postoperative changes right breast with surgical clips right axilla. Breasts are incompletely imaged. UPPER ABDOMEN: Small type I hiatus hernia. Gastric banding device in place, appears normally positioned. Normal unenhanced liver and gallbladder. Normal spleen and adrenal glands. OSSEOUS STRUCTURES: There is mild osteopenia. There are degenerative spinal changes. There is no suspicious lytic or blastic bone lesion. CT/CT chest wo IV con IMPRESSION: 1. Allowing for respiratory motion, no significant change in the appearance or size of a dominant left lower lobe lobular nodule measuring 1.4 cm. This measures low density in Hounsfield units, and may represent a hamartoma. Unfortunately respiratory motion precludes definitive evaluation for attenuation. Continued close interval follow-up recommended. 2. There are a few additional scattered nodules measuring up to 5 mm in the lingula, which were either not previously imaged, or are stable. The lingular nodule is stable. Continued close interval follow-up recommended. 3. Focal bronchiectasis in the right upper lobe. 4. Lungs otherwise clear without active disease. 5. Gastric banding device in place. Small hiatus hernia. Electronically signed by: Juan Valencia MD 07/02/2024 03:26 PM EST Dictated By: Juan Valencia MD Signed By: <Electronically signed by Juan Valencia MD in OV> 07/02/24 1526 07/02/24 CT on Left Assessment & Plan Assessment & Plan (1) Pulmonary nodule 1 cm or greater in diameter: Code(s): R91.1 - Solitary pulmonary nodule Category: Medical (2) History of bilateral breast cancer: Code(s): Z85.3 - Personal history of malignant neoplasm of breast Category: Medical Plan Reviewed chest CT with patient and daughter. Report states no change in LLL nodule however less prominent on recent scan (scans above) and radiologist thought pulmonary nodule suggestive of hamartoma given Hounsfield units. Discussed findings with patient and recommendations for repeat chest CT in 3 months vs PET scan. Patient aware this could still be a malignant process but agreed to move forward with chest CT in three months to assess stability. Will enter order to be performed 09/2024. All questions were answered and patient is in agreement of plan. Will follow up to review results or sooner if needed. Orders: Orders CT chest wo IV con 2 Months R91.1 - Solitary pulmonary nodule, Z85.3 - Personal history of malignant neoplasm of breast Coding Level of Care Code Est Pt Level 4 (77773) Diagnoses Pulmonary nodule 1 cm or greater in diameter R91.1 History of bilateral breast cancer Z85.3
[2024-07-21 15:58] VITALS: BP 140/64; PULSE 97; O2SAT 97; BMI 33.7
--- OUTSIDE RECORDS SUMMARY | 2024-07-21 19:00 | XMS_ITS | Clinical Summary ---
Author Organization [address] Address [address] [place] [phone] Phone Care Team Providers Care Clinical Consultant Name Role Phone Chencho Bermudez MD Primary Care Provider +[phone] Medical History Medical History Date Comments Diabetes [...] Last Done Comments COVID-19 Vaccine (#1) 1950 DTaP,Tdap,and Td Vaccines (1 - Tdap) 1964 Pneumococcal Vaccine: 50+ Ye ars (1 of 1 - PCV) 10/15/1995 Zoster Vaccines (1 of 2) 10/15/1995 RSV [...] patient's age to complete this topic Meningococcal B Vacine Aged Out No lo nger eligible based on patient's age to complete this topic RSV Immunization Patients Un claudio 20 months Aged Out No longer eligible b ased on patient's age to complete this topic Varicella Vaccines Aged Out No longer eligible based on patient's age to complete this topic Care Teams Clinical Consultant Relationship Specialty Start Date End Date Chencho Bermudez MD [address] [place], [place] [address]eliza Kavya [address] PCP - General 03/19/23
--- OUTSIDE RECORDS SUMMARY | 2024-07-21 19:00 | XMS_ITS | Encounter Summary ---
Author Organization [facility] Address [address] [place] [address] Care Team Providers Care Steam Fitter Supervisor Name Role Phone Chencho Bermudez MD Primary Care Provider [phone] Encounter Details Date Type Department Care Team (Late st Contact Info) Description 03/22/2024 Lab Requisition [facility] - Main Lab [address] [place] [address] MD [address] [place] [id number] Acquired absence of right knee Social History [...] AM EST) WBC 5.7 4.8 - 10.8 K/[facility] LAB HEMETOLOGY METHOD 03/22/2024 12:37 PM EST [facility] RBC 3.50(L) 3.80 - 4.80 M/[facility] LAB HEMETOLOGY METHOD 03/22/2024 12:37 PM [facility] LAB Hemoglobin 9.8(L) 11.5 - 16.0 g/dL LAB HEMETOLOGY METHOD 03/22/2024 12:37 PM [facility] LAB Hematocrit 32.3(L) 35.0 - 47.0 % LAB HEMETOLOGY METHOD 03/22/2024 12:37 PM [facility] LAB MCV 91.5 79.0 - 98.0 FL LAB HEMETOLOGY METHOD 03/22/2024 12:37 PM [facility] LAB MCH 27.8 27.0 - 32.0 pcg LAB HEMETOLOGY METHOD 03/22/2024 12:37 PM [facility] LAB MCHC 30.3(L) 32.0 - 37.0 g/dL LAB HEMETOLOGY METHOD 03/22/2024 12:37 PM [facility] LAB RDW 12.8 11.0 - 15.0 % LAB HEMETOLOGY METHOD 03/22/2024 12:37 PM [facility] LAB Platelets 274 130 - 400 K/mcL LAB HEMETOLOGY METHOD 03/22/2024 12:37 PM [facility] LAB MPV 9.7 7.0 - 11.0 FL LAB HEMETOLOGY METHOD 03/22/2024 12:37 PM [facility] LAB NRBC 0.0 <1.0 % LAB HEMETOLOGY METHOD 03/22/2024 12:37 PM [facility] LAB NRBC Absolute 0.00 <0.10 K/mcL LAB HEMETOLOGY METHOD 03/22/2024 12:37 PM [facility] LAB Blood Venous blood specimen / Unknown Venipuncture / Unknown 03/22/2024 6:00 AM EST 03/22/2024 12:05 PM EST us Piyush Street MD LAB BLOOD ORDERABLES Final Res ult [facility] [address] [place] [address], * (ABNORMAL) Basic metabolic panel (03/22/2024 6:00 AM EST) Sodium 140 133 - 145 mmol/L LAB CHEMISTRY METHOD 03/22/2024 1:25 PM [facility] Potassium 4.4 3.5 - 5.5 mmol/L LAB CHEMISTRY METHOD 03/22/2024 1:25 PM [facility] Chloride 103 96 - 110 mmol/L LAB CHEMISTRY METHOD 03/22/2024 1:25 PM [facility] LAB CO2 30 21 - 32 mmol/L LAB CHEMISTRY METHOD 03/22/2024 1:25 PM [facility] Anion Gap 7 3 - 11 LAB CHEMISTRY METHOD 03/22/2024 1:25 PM [facility] LAB Glucose 78 70 - 100 mg/dL LAB CHEMISTRY METHOD 03/22/2024 1:25 PM [facility] BUN 20 5 - 25 mg/dL LAB CHEMISTRY METHOD 03/22/2024 1:25 PM [facility] Creatinine 1.37(H) 0.50 - 1.10 mg/dL LAB CHEMISTRY METHOD 03/22/2024 1:25 PM [facility] LAB eGFR 40(L) >=60 mL/min/1. 73m2 LAB CHEMISTRY METHOD 03/22/2024 1:25 PM [facility] LAB Comment:Calculation based on the??Chronic Kidney Disease Epidemiology Collaboration (CKD-EPI) equation refit??without adjustment for race. BUN/Creatinine Ratio 14.6 LAB CHEMISTRY METHOD 03/22/2024 1:25 PM [facility] Calcium 9.1 8.5 - 10.5 mg/dL LAB CHEMISTRY METHOD 03/22/2024 1:25 PM [facility] Blood Venous blood specimen / Unknown Venipuncture / Unknown 03/22/2024 6:00 AM EST 03/22/2024 12:05 PM EST us Piyush Street MD LAB BLOOD ORDERABLES Final Res ult [facility] ([facility] [address] [place] [address], documented in this encounter Visit Diagnoses Diagnosis Acquired absence of right knee documented in this encounter Care Teams Steam Fitter Supervisor Relationship Specialty Start Date End Date Chencho Bermudez MD [address] [facility] [address] PCP - General 03/19/23 documented as of this encounter
== END 2024-07-21 16:36 | disposition home or self-care (01) ==
PROVIDERS: PCP Internal Medicine; Visit Provider Nurse Practitioner Family
DX: R91.1 Solitary pulmonary nodule (principal); Z85.3 Personal history of malignant neoplasm of breast
CPT/HCPCS: 99214

== ENCOUNTER → 2024-07-21 15:49 | Outpatient (BNVA) | payer MEDICARE, SELFPAY | PROVIDERS: PCP Internal Medicine; Visit Provider Nurse Practitioner Family | DX: R91.1 Solitary pulmonary nodule (principal); Z85.3 Personal history of malignant neoplasm of breast; Z87.891 Personal history of nicotine dependence | CPT/HCPCS: 99212 ==

== ENCOUNTER 2024-09-17 13:39 | Outpatient (REF) | payer MEDICARE, SELFPAY ==
--- NOTE | ~2024-09-17 | CT_ITS ---
CLINICAL HISTORY: R91.1 - Solitary pulmonary nodule CT chest without IV contrast. COMPARISON: CT chest dated 07/02/24 at 14:35 EST FINDINGS: Heterogeneous thyroid without definitive thyroid nodule. No supraclavicular or axillary lymphadenopathy. Surgical clips present within the right axilla. Dystrophic calcifications present along the right breast with associated skin thickening, similar to prior imaging. Stable soft tissue nodularity within the right breast measuring 2.0 x 1.2 cm (series 8, image 58). Ascending aorta and main pulmonary artery are normal in caliber. Coronary artery calcifications present within the LAD and circumflex. Aortic annular and valve calcifications. Mitral annular calcifications. No pericardial effusion. Small hiatal hernia. No mediastinal lymphadenopathy. No pleural effusion. No consolidation. Trachea and central airways are clear. No significant bronchial wall thickening. No bronchiectasis. Left lingular pulmonary nodule measuring 1.8 x 1.2 x 0.9 cm (series 8, image 106) prior imaging this measured approximately 1.5 x 1.1 x 1.0 cm although motion artifact limited evaluation on prior imaging. There are variable Hounsfield units within the nodule ranging from -10 to 13. Several additional small pulmonary nodules present. For example, triangular left upper lobe fissural 3 mm pulmonary nodule (series 4, image 50), almost certainly representing a lymph node and stable from prior imaging. Left upper lobe 3 mm pulmonary nodule (series 4, image 67), stable. Left upper lobe 2 mm pulmonary micronodule (series 4, image 69), stable. Left lower lobe 3 mm pulmonary nodule (series 4, image 98), stable. Left lingular 5 mm pulmonary nodule (series 4, image 81), stable. Gastric banding present. Flowing marginal osteophytes present throughout the thoracic spine. No acute fracture or suspicious bone lesion. IMPRESSION: 1. Similar size of dominant left lingular pulmonary nodule measuring up to 1.8 cm. Nodule remains indeterminate although could represent a hamartoma. Recommend comparison with more remote imaging if available. If none available, recommend direct tissue sampling, PET-CT or short-term follow-up imaging in 6-12 months. 2. Stable additional smaller pulmonary nodules measuring 2-5 mm. 3. Coronary artery atherosclerosis. Mitral annular and aortic annular and valve calcifications present. 4. Stable soft tissue nodularity and dystrophic calcifications within the right breast with overlying skin thickening. Recommend correlation with clinical history and recent mammography. This document has been electronically signed by: Tello Gómez MD on 09/20/2024 12:14:12
--- OUTSIDE RECORDS SUMMARY | 2024-09-17 13:56 | XMS_ITS | Clinical Summary ---
Author Organization [address] Address [address] [place] [address] Phone Care Team Providers Care Real Estate Agency Principal Name Role Phone Chencho Bermudez MD Primary Care Provider [phone] Medical History Medical History Date Comments Diabetes mellitus type 2, co ntrolled, with complications (CMS/HCC V24, CMS/HCC V28) DX:Diabetes mellitus type 2, controlled, with complications [...] Vaccines (1 of 2) 10/15/1995 RSV Immunization Adult Patie nts (1 - 1-dose 75+ series) 2020 Depression Screening 06/13/2023 Falls Risk Assessment 06/13/2023 Hepatitis C Screening 06/13/2023 Osteoporosis Screening (Bone Density Screening) 06/13/2023 Social Influencers of Health Screening 06/13/2023 Influenza Vaccine (Season Ended) 2025 HIB Vaccines Aged Out No longer eligi [...] age to complete this topic Meningococcal B Vaccine Aged Out No l onger eligible based on patient's age to complete this topic RSV Immunization Patients Un claudio 20 months Aged Out No longer eligible b ased on patient's age to complete this topic Varicella Vaccines Aged Out No longer eligible based on patient's age to complete this topic Care Teams Real Estate Agency Principal Relationship Specialty Start Date End Date Chencho Bermudez MD [address] [place], [place] [address]eliza Kavya [address] PCP - General 03/19/23
--- OUTSIDE RECORDS SUMMARY | 2024-09-17 13:56 | XMS_ITS ---
Author Organization [facility] Care Team Providers Care Sales And Operations Trainee Name Role Phone Yumiko Obrien Unavailable Unavailable [place] Campos Unavailable Unavailable Eduar Layton Unavailable Unavailable Hellen Mims Unavailable Unavailable Du Gusman Unavailable Unavailable Luh Escalante Unavailable Unavailable Allergies and adverse reactions No Known Allergies Care Team Name Role Address Phone Organization Dates Eduar Layton PCP [address] [facility] [address], [place], [address], [place] (Office): [facility] 08/25/2022 - 10/02/2022 Yumiko Obrien Attending Physician [address] [place], [address], [place] (Office): [facility] 08/25/2022 - 10/02/2022 Florida Campos Attending Physician [address] [facility] [address] [place] [address], [address], [place] (Office): [facility] 08/25/2022 - 10/02/2022 Hellen Mims Attending Physician [address] [facility] [address] [place] [address], [address], [place] (Office): [facility] 08/25/2022 - 10/02/2022 Du Gusman Attending Physician [address], [place], [address], [place] (Office): [facility] 08/25/2022 - 10/02/2022 Luh Escalante Attending Physician [address] [place], [address], [place]Office): [facility] 08/25/2022 - 10/02/2022 Immunizations Immunization Status Vaccine Details Vaccine Code CodeSystem Date Notes Influenza completed Influenza, split virus, trivalent, injectable, contains preservative 141 CVX created date: 08/26/2022 administer ed date: 02/24/2022 SARS-COV-2 (COVID-19) completed SARS-COV-2 (COVID-19) vaccine, mRNA, spike protein, LNP, preservative free, 3 mcg/0.2mL dose, flavio-sucrose formulation Mfg: [employer] Step 2 of Multi-step with next step required 219 CVX created date: 08/26/2022 administer ed date: 08/24/2020 SARS-COV-2 (COVID-19) completed SARS-COV-2 (COVID-19) vaccine, mRNA, spike protein, LNP, preservative free, 30 mcg/0.3mL dose Mfg: [employer] Step 1 of Multi-step with next step required 208 CVX created date: 08/26/2022 administer ed date: 08/03/2020 SARS-COV-2 (COVID-19 BOOSTER) completed SARS-COV-2 (COVID-19) vaccine, mRNA, spike protein, LNP, preservative free, 3 mcg/0.2mL dose, flavio-sucrose formulation Mfg: pfizer booster bivalent 219 CVX created date: 08/26/2022 administer ed date: 02/24/2022 Bivalent Booster SARS-COV-2 (COVID-19 BOOSTER) completed SARS-COV-2 (COVID-19) vaccine, mRNA, spike protein, LNP, preservative free, 3 mcg/0.2mL dose, flavio-sucrose formulation Mfg: [employer] 219 CVX created date: 08/26/2022 administer ed date: 03/01/2021 Booster #1 Mental Status Section Date Assessment Total Score Description 10/02/2022 BIMS 15 cognitively int act CAM 0 No delirium ind icated PHQ-9 06 mild depression 09/01/2022 BIMS 12 moderate cognit isabel impairment CAM 0 No delirium ind icated PHQ-9 06 mild depression Problems Problem # Description Date of onset Resolved Date Code CodeSystem Concern Status 1 CHRONIC KIDNEY DISEASE, STAGE 3A 08/25/[address] active 2 DEPRESSION, UNSPECIFIED 08/25/[address] active 3 DIFFICULTY IN WALKING, NOT ELSEWHERE CLASSIFIED 08/25/[address] active 4 DISPLACED OBLIQUE FRACTURE OF SHAFT OF LEFT FIBULA, SUBSEQUENT ENCOUNTER FOR CLOSED FRACTURE WITH ROUTINE HEALING 08/25/[address] active 5 MALIGNANT NEOPLASM OF UNSPECIFIED SITE OF RIGHT FEMALE BREAST 08/25/[address] active 6 MUSCLE WEAKNESS (GENERALIZED) 08/25/[address] active 7 POST-TRAUMATIC STRESS DISORDER, CHRONIC 08/25/[address] active 8 TYPE 2 DIABETES MELLITUS WITHOUT COMPLICATIONS 08/25/[address] active 9 UNSPECIFIED FALL, SEQUELA 08/25/[address] active Reason for Referral No Reasons for Referral Entered Social History Social History Observation Description Start Date End Date Code Code System Current Smoking Status Tobacco smoking consumption unknown 237565853 SNOMED CT Sex Assigned At Female 1945 [address]-5 [facility] Vital Signs Code Code System Vitals Name Values and Units Timing Information 42269-2 LOINC Weight Nbsak=867.6 Units=Lbs 88261-4 LOINC Pain Level Value=0.0 10/02/2022 2339-0 LOINC Blood Sugar Mjuvs=269.0 Units=mg/dL 10/02/2022 9279-1 LOINC Respiratory Rate Value=18.0 Units=/m in 10/02/2022 8462-4 LOINC Blood Pressure-Diastolic Value=71 Un its=mmHg 10/02/2022 8480-6 LOINC Blood Pressure-Systolic Litgn=714 Un its=mmHg 10/02/2022 8310-5 LOINC Body Temperature Value=97.8 Units=?? F 10/02/2022 8867-4 [facility] Heart rate Value=83.0 Units=/min 92807-9 [facility] O2 % BldC Oximetry Value=97.0 Units= % 10/02/2022 8302-2 [facility] Height Value=68.0 Units=Inches 08/27/2022
--- OUTSIDE RECORDS SUMMARY | 2024-09-17 13:56 | XMS_ITS | Encounter Summary ---
Author Organization [facility] Address [address] [place] [address] Care Team Providers Care Tobacco Sorter Name Role Phone Chencho Bermudez MD Primary Care Provider [phone] Encounter Details Date Type Department Care Team (Late st Contact Info) Description 03/22/2024 Lab Requisition [facility] - Main Lab [address] [place] [address] MD [address] [place] [address] Acquired absence of right knee Social History [...] AM EST) WBC 5.7 4.8 - 10.8 K/[facility] LAB HEMETOLOGY METHOD 03/22/2024 12:37 PM EST [facility] RBC 3.50(L) 3.80 - 4.80 M/[facility] LAB HEMETOLOGY METHOD 03/22/2024 12:37 PM [facility] Hemoglobin 9.8(L) 11.5 - 16.0 g/dL LAB HEMETOLOGY METHOD 03/22/2024 12:37 PM [facility] LAB Hematocrit 32.3(L) 35.0 - 47.0 % LAB HEMETOLOGY METHOD 03/22/2024 12:37 PM [facility] MCV 91.5 79.0 - 98.0 FL LAB HEMETOLOGY METHOD 03/22/2024 12:37 PM [facility] MCH 27.8 27.0 - 32.0 pcg LAB HEMETOLOGY METHOD 03/22/2024 12:37 PM [facility] MCHC 30.3(L) 32.0 - 37.0 g/dL LAB HEMETOLOGY METHOD 03/22/2024 12:37 PM [facility] RDW 12.8 11.0 - 15.0 % LAB HEMETOLOGY METHOD 03/22/2024 12:37 PM [facility] Platelets 274 130 - 400 K/mcL LAB HEMETOLOGY METHOD 03/22/2024 12:37 PM [facility] MPV 9.7 7.0 - 11.0 FL LAB HEMETOLOGY METHOD 03/22/2024 12:37 PM [facility] NRBC 0.0 <1.0 % LAB HEMETOLOGY METHOD 03/22/2024 12:37 PM [facility] NRBC Absolute 0.00 <0.10 K/mcL LAB HEMETOLOGY METHOD 03/22/2024 12:37 PM [facility] Blood Venous blood specimen / Unknown Venipuncture / Unknown 03/22/2024 6:00 AM EST 03/22/2024 12:05 PM EST us Piyush Street MD LAB BLOOD ORDERABLES Final Res ult [facility] [address] [place] [address], * (ABNORMAL) Basic metabolic panel (03/22/2024 6:00 AM EST) Sodium 140 133 - 145 mmol/L LAB CHEMISTRY METHOD 03/22/2024 1:25 PM [facility] Potassium 4.4 3.5 - 5.5 mmol/L LAB CHEMISTRY METHOD 03/22/2024 1:25 PM [facility] Chloride 103 96 - 110 mmol/L LAB CHEMISTRY METHOD 03/22/2024 1:25 PM [facility] CO2 30 21 - 32 mmol/L LAB CHEMISTRY METHOD 03/22/2024 1:25 PM [facility] Anion Gap 7 3 - 11 LAB CHEMISTRY METHOD 03/22/2024 1:25 PM [facility] Glucose 78 70 - 100 mg/dL LAB CHEMISTRY METHOD 03/22/2024 1:25 PM [facility] BUN 20 5 - 25 mg/dL LAB CHEMISTRY METHOD 03/22/2024 1:25 PM [facility] Creatinine 1.37(H) 0.50 - 1.10 mg/dL LAB CHEMISTRY METHOD 03/22/2024 1:25 PM [facility] eGFR 40(L) >=60 mL/min/1. 73m2 LAB CHEMISTRY METHOD 03/22/2024 1:25 PM [facility] Comment:Calculation based on the??Chronic Kidney Disease Epidemiology Collaboration (CKD-EPI) equation refit??without adjustment for race. BUN/Creatinine Ratio 14.6 LAB CHEMISTRY METHOD 03/22/2024 1:25 PM [facility] Calcium 9.1 8.5 - 10.5 mg/dL LAB CHEMISTRY METHOD 03/22/2024 1:25 PM [facility] Blood Venous blood specimen / Unknown Venipuncture / Unknown 03/22/2024 6:00 AM EST 03/22/2024 12:05 PM EST us Piyush Street MD LAB BLOOD ORDERABLES Final Res ult [facility] [address] [place] [address], documented in this encounter Visit Diagnoses Diagnosis Acquired absence of right knee documented in this encounter Care Teams Tobacco Sorter Relationship Specialty Start Date End Date Chencho [facility]udez [facility] [address] [facility] [address] PCP - General 03/19/23 documented as of this encounter
== END 2024-09-17 13:40 | disposition home or self-care (01) ==
LOC: HO.CT 13:39
PROVIDERS: PCP Internal Medicine; Visit Provider Nurse Practitioner Family
DX: R91.1 Solitary pulmonary nodule (principal); Z85.3 Personal history of malignant neoplasm of breast
CPT/HCPCS: 71250

== ENCOUNTER → 2024-09-17 13:41 | Outpatient (BNV) | payer MEDICARE, SELFPAY | PROVIDERS: PCP Internal Medicine; Visit Provider Radiology Diagnostic Radiology | DX: R91.8 Other nonspecific abnormal finding of lung field (principal); I25.10 Atherosclerotic heart disease of native coronary artery without angina pectoris; I34.81 Nonrheumatic mitral (valve) annulus calcification | CPT/HCPCS: 71250 ==

== ENCOUNTER 2024-10-13 15:01 | Outpatient (AMB) | payer MEDICARE, SELFPAY ==
[2024-10-13 15:22] VITALS: BP 114/66; PULSE 90; O2SAT 98; BMI 34.0
--- NOTE | 2024-10-13 15:22 | MHC.OFFVIS ---
Vital Signs 10/13/24 15:22 Height 5 ft 6 in Weight 210 lb 8 oz BMI 34.0 BP 114/66 Blood Pressure Location Lt brachial Position Sitting Pulse 90 Pulse Source Pulse Oximeter Pulse Oximetry (%) 98 Oxygen Delivery Method Room Air Intake Visit Reasons: pulmonary nodule Allergies No Known Allergies Allergy (Verified 10/13/24 15:24) HPI HPI pulmonary nodule: Details: Cherelle is a pleasant 79 year old female, former 10 pack year smoker, quit 2019 with underlying h/o breast cancer s/p left lumpectomy 2018 and right lumpectomy 2000 and radiation maintained on anastrozole, HTN, DMII, HLD and anxiety. Today she is accompanied by her daughter. She was initially referred by PCP for pulmonary evaluation after incidental finding on abdominal CT. CT abdomen performed in 05/11/24 revealed LLL nodule measuring 1.3 cm. Recommendations were made for PET vs [address] and she opted for repeat imaging. Today she presents to review chest CT results. She currently denies any respiratory symptoms. [facility] Social History Cigarettes Per Day: 4 Years Smoked: 35 years/ Quit 2020 in June Review of Systems Const Denies chills, Denies excessive sweating, Denies fever(s), Denies headache(s) and Denies night sweats Eyes Denies dry eyes, Denies irritation and Denies itchy eyes ENT Reports Normal hearing present, Denies headache(s), Denies nasal congestion, Denies nasal discharge, Denies post nasal drip and Denies sore throat Card Denies chest pain, Denies chest pain at rest, Denies chest pain with activity, Denies claudication, Denies leg edema, Denies dyspnea, Denies dyspnea on exertion, Denies orthopnea and Denies paroxysmal nocturnal dyspnea Resp Denies chest congestion, Denies cough, Denies excessive phlegm production, Denies pain on inspiration, Denies pain with cough, Denies dyspnea, Denies dyspnea on exertion, Denies stridor and Denies wheezing Musc Denies myalgias Neuro Reports Normal hearing present and Denies headache(s) Endo Denies excessive sweating Gustavo/Lymph Denies lymphadenopathy Aller/Immun Denies itchy eyes, Denies seasonal rhinorrhea and Denies wheezing Physical Exam Vital Signs: Last Vital Signs Pulse 90 10/13/24 15:22 BP 114/66 10/13/24 15:22 Pulse Ox 98 10/13/24 15:22 Oxygen Delivery Method Room Air 10/13/24 15:22 BMI result Body Mass Index 34.0 Const General: cooperative, healthy appearing, comfortable, no acute distress, well developed and alert Nutritional Appearance: obese Orientation/consciousness: patient oriented x3 Limitations: wheelchair HEENT Head: Yes normal to inspection, Yes normocephalic and Yes atraumatic Ears: hearing grossly normal bilaterally and external ears normal Eyes General: appearance normal, both eyes and all related structures Eyelids: Yes eyelids normal Sclerae: sclerae normal EOM: EOMs intact bilaterally Neck Neck: Yes normal visual inspection and Yes no lymphadenopathy Lymphatic: no lymphadenopathy noted Chest Chest palpation & inspection: normal inspection of the chest Resp Effort & Inspection: normal respiratory effort, able to speak in complete sentences, no audible wheezes, no cough, no stridor, not tachypneic, no tripod positioning and no use of accessory muscles Auscultation: clear to auscultation bilaterally Cardio Jugular venous distension: no JVD Rate: regular rate Rhythm: regular rhythm Skin Other: warm, dry General skin exam: no rashes or lesions noted Neuro General: patient oriented x3 Cranial nerves: Yes Normal hearing present Cognition (Neuro): normal cognition Extrem General: Yes normal to inspection, Yes capillary refill normal, Yes no clubbing, cyanosis or edema and Yes no pedal edema Psych Appearance: grossly normal and well kempt Speech and movement: Normal speech and movement present and Clear speech present Affect: normal affect Attitude: cooperative Thought process: Normal thought process present Thought content: Normal thought content present Insight: Good insight present (Psych) Judgement: Good judgement present (Psych) Results Reviewed Results Reviewed: [address] [address] [address] Scan Report Signed Patient: Cherelle Pearl MR#: [id number] : 1945 Acct:[id number] Age/Sex: 78 / F ADM Date: 09/17/24 Loc: HO.CT Attending Dr: Nataly Cash SOURCING ENGINEER Ordering Physician: Nataly Cash NP Date of Service: 09/17/24 Procedure(s): CT chest wo IV con Accession Number(s): [id number] cc: Chencho Bermudez MD; Nataly Cash NP~ Report Number: [id number]: Total DLP = 211.00 mGy-cm CLINICAL HISTORY: R91.1 - Solitary pulmonary nodule CT chest without IV contrast. COMPARISON: CT chest dated 07/02/24 at 14:35 EST FINDINGS: Heterogeneous thyroid without definitive thyroid nodule. No supraclavicular or axillary lymphadenopathy. Surgical clips present within the right axilla. Dystrophic calcifications present along the right breast with associated skin thickening, similar to prior imaging. Stable soft tissue nodularity within the right breast measuring 2.0 x 1.2 cm (series 8, image 58). Ascending aorta and main pulmonary artery are normal in caliber. Coronary artery calcifications present within the LAD and circumflex. Aortic annular and valve calcifications. Mitral annular calcifications. No pericardial effusion. Small hiatal hernia. No mediastinal lymphadenopathy. No pleural effusion. No consolidation. Trachea and central airways are clear. No significant bronchial wall thickening. No bronchiectasis. Left lingular pulmonary nodule measuring 1.8 x 1.2 x 0.9 cm (series 8, image 106) prior imaging this measured approximately 1.5 x 1.1 x 1.0 cm although motion artifact limited evaluation on prior imaging. There are variable Hounsfield units within the nodule ranging from -10 to 13. Several additional small pulmonary nodules present. For example, triangular left upper lobe fissural 3 mm pulmonary nodule (series 4, image 50), almost certainly representing a lymph node and stable from prior imaging. Left upper lobe 3 mm pulmonary nodule (series 4, image 67), stable. Left upper lobe 2 mm pulmonary micronodule (series 4, image 69), stable. Left lower lobe 3 mm pulmonary nodule (series 4, image 98), stable. Left lingular 5 mm pulmonary nodule (series 4, image 81), stable. Gastric banding present. Flowing marginal osteophytes present throughout the thoracic spine. No acute fracture or suspicious bone lesion. IMPRESSION: 1. Similar size of dominant left lingular pulmonary nodule measuring up to 1.8 cm. Nodule remains indeterminate although could represent a hamartoma. Recommend comparison with more remote imaging if available. If none available, recommend direct tissue sampling, PET-CT or short-term follow-up imaging in 6-12 months. 2. Stable additional smaller pulmonary nodules measuring 2-5 mm. 3. Coronary artery atherosclerosis. Mitral annular and aortic annular and valve calcifications present. 4. Stable soft tissue nodularity and dystrophic calcifications within the right breast with overlying skin thickening. Recommend correlation with clinical history and recent mammography. This document has been electronically signed by: Tello Gómez MD on 09/20/2024 12:14:12 Dictated By: Tello Gómez MD Signed By: <Electronically signed by Tello Gómez MD in OV> 09/20/24 1214 DD/ 1214 TD/TT: 09/20/24 1214 Licensed Sales Assistant: Assessment & Plan Assessment & Plan (1) Pulmonary nodule 1 cm or greater in diameter: Code(s): R91.1 - Solitary pulmonary nodule Category: Medical (2) History of bilateral breast cancer: Code(s): Z85.3 - Personal history of malignant neoplasm of breast Category: Medical Plan Reviewed chest CT with patient and daughter which revealed similar size of dominant left lingular pulmonary nodule measuring up to 1.8 cm. Nodule remains indeterminate although could represent a hamartoma however underlying malignancy can not be excluded. Again discussed recommendation for PET which she was not agreeable to. She did agree to proceed with another [address], as visually nodule appears more solid compared to 06/2024 CT. Patient aware this could still be a malignant process but agreed to move forward with chest CT in three months to assess stability. Patient also noted possibly need for perioperative pulmonary evaluation for upcoming knee replacement. Will enter PFT to assess lung function. All questions were answered and patient is in agreement of plan. Will follow up to review results or sooner if needed. Orders: Orders CT chest wo IV con 2 Months R91.1 - Solitary pulmonary nodule PFT pulmonary function test Today Z01.818 - Encounter for other preprocedural examination, Z87.891 - Personal history of nicotine dependence Coding Level of Care Code Est Pt Level 4 (22910) Diagnoses Pulmonary nodule 1 cm or greater in diameter R91.1 History of bilateral breast cancer Z85.3
--- OUTSIDE RECORDS SUMMARY | 2024-10-13 15:45 | XMS_ITS | Clinical Summary ---
Author Organization [address] Address [address] [place] [address] Phone Care Team Providers Care Filter Operator Name Role Phone Chencho Bermudez MD Primary Care Provider [phone] Medical History Medical History Date Comments Diabetes [...] age to complete this topic Care Teams Filter Operator Relationship Specialty Start Date End Date Chencho Bermudez MD [address] [place] [address] PCP - General 03/19/23
== END 2024-10-13 15:57 | disposition home or self-care (01) ==
LOC: HO.HPSW 15:01
PROVIDERS: PCP Internal Medicine; Visit Provider Nurse Practitioner Family
DX: R91.1 Solitary pulmonary nodule (principal); Z85.3 Personal history of malignant neoplasm of breast
CPT/HCPCS: 99214

== ENCOUNTER → 2024-10-13 15:01 | Outpatient (BNVA) | payer MEDICARE, SELFPAY | PROVIDERS: PCP Internal Medicine; Visit Provider Nurse Practitioner Family | DX: R91.1 Solitary pulmonary nodule (principal); Z85.3 Personal history of malignant neoplasm of breast | CPT/HCPCS: 99212 ==

== ENCOUNTER 2025-01-07 13:06 | Outpatient (REF) | payer MEDICARE, SELFPAY ==
--- NOTE | ~2025-01-07 | CT_ITS ---
EXAMINATION: CT CHEST WITHOUT CONTRAST CLINICAL INFORMATION: R91.1 - Solitary pulmonary nodule COMPARISON: 07/02/2024 [facility] [place] CT A-P from 05/11/2024 TECHNIQUE: Multidetector volumetric CT imaging of the chest was done. Axial MIP volume rendering provided. Sagittal and coronal reformatted images were obtained. This CT examination was performed using dose optimization techniques as appropriate, variously including the following: *Automated exposure control *Adjustment of mA and/or kV according to patient size (this includes techniques or standardized protocols for targeted exams where dose is matched to indication/reason for exam; i.e. extremities or head) *Use of iterative reconstruction technique FINDINGS: LUNGS: Again noted is a solid pulmonary nodule in the anteromedial segment of the left lower lobe measuring 12 x 17 mm (AP by transverse), previously measuring 12 x 16 mm. There is low density within the nodule measuring -204 Hounsfield units (axial series CT #3. Image 359/537) consistent with gross fat. MEDIASTINUM: The mediastinum is normal. CORONARY ARTERY CALCIFICATION: Densely calcified PLEURA: There is no pleural effusion. No pleural mass or thickening. AXILLA: There are are surgical clips in the inferior right axillary region and branch calcifications in the right upper breast UPPER ABDOMEN: Gastric band is noted around the gastric fundus. OSSEOUS STRUCTURES: There is diffuse osteopenia. Flowing osteophytes are present in the anterior thoracic spine. There are also posterior disc osteophyte complex, more dense in the mid to upper thoracic spine. CT/CT chest wo IV con IMPRESSION: Stable solid pulmonary nodule in the anteromedial segment of the left lower lobe measuring 12 x 17 millimeter. 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 Electronically signed by: Ranjeet Bey MD 01/07/2025 02:03 PM EDT
--- OUTSIDE RECORDS SUMMARY | 2025-01-07 13:09 | XMS_ITS | Clinical Summary ---
Author Organization [address] Address [address] [place] [phone] Phone Care Team Providers Care Forest Worker Name Role Phone Chencho Bermudez MD Primary Care Provider [phone] Medical History Medical History Date Comments Diabetes [...] nts (1 - 1-dose 75+ series) 2020 Falls Risk Assessment 06/13/2023 Hepatitis C Screening 06/13/2023 Osteoporosis Screening (Bone Density Screening) 06/13/2023 Social Influencers of Health Screening 06/13/2023 Depression Screening 05/19/2024 Influenza Vaccine (#1) 2025 HIB Vaccines Aged Out No longer [...] age to complete this topic Care Teams Forest Worker Relationship Specialty Start Date End Date Chencho Bermudez MD [address] [place] [address] PCP - General 03/19/23
== END 2025-01-07 13:07 | disposition home or self-care (01) ==
LOC: HO.CT 13:06
PROVIDERS: PCP Internal Medicine; Visit Provider Nurse Practitioner Family
DX: R91.1 Solitary pulmonary nodule (principal)
CPT/HCPCS: 71250

== ENCOUNTER → 2025-01-07 13:08 | Outpatient (BNV) | payer MEDICARE, SELFPAY | PROVIDERS: PCP Internal Medicine; Visit Provider Radiology Diagnostic Radiology | DX: R91.1 Solitary pulmonary nodule (principal) | CPT/HCPCS: 71250 ==

== ENCOUNTER 2025-01-11 09:02 | Outpatient (REF) | payer MEDICARE, SELFPAY ==
--- OUTSIDE RECORDS SUMMARY | 2025-01-11 09:22 | XMS_ITS | Encounter Summary ---
Author Organization [facility] Address [address] [place] [address] Care Team Providers Care Retail Wireless Sales Consultant Name Role Phone Chencho Bermudez MD Primary Care Provider [phone] Encounter Details Date Type Department Care Team (Late st Contact Info) Description 03/22/2024 Lab Requisition [facility] - Main Lab [address] [place] [address] MD [address] [place] [id number] Acquired absence of right knee Social History [...] AM EST) WBC 5.7 4.8 - 10.8 K/[facility] LAB HEMETOLOGY METHOD 03/22/2024 12:37 PM EST [facility] RBC 3.50(L) 3.80 - 4.80 M/[facility] LAB HEMETOLOGY METHOD 03/22/2024 12:37 PM [facility] LAB Hemoglobin 9.8(L) 11.5 - 16.0 g/dL LAB HEMETOLOGY METHOD 03/22/2024 12:37 PM [facility] LAB Hematocrit 32.3(L) 35.0 - 47.0 % LAB HEMETOLOGY METHOD 03/22/2024 12:37 PM [facility] MCV 91.5 79.0 - 98.0 FL LAB HEMETOLOGY METHOD 03/22/2024 12:37 PM [facility] LAB MCH 27.8 27.0 - 32.0 pcg LAB HEMETOLOGY METHOD 03/22/2024 12:37 PM [facility] LAB MCHC 30.3(L) 32.0 - 37.0 g/dL LAB HEMETOLOGY METHOD 03/22/2024 12:37 PM [facility] RDW 12.8 11.0 - 15.0 % LAB HEMETOLOGY METHOD 03/22/2024 12:37 PM [facility] LAB Platelets 274 130 - 400 K/mcL LAB HEMETOLOGY METHOD 03/22/2024 12:37 PM [facility] LAB MPV 9.7 7.0 - 11.0 FL LAB HEMETOLOGY METHOD 03/22/2024 12:37 PM [facility] NRBC 0.0 <1.0 % LAB HEMETOLOGY METHOD 03/22/2024 12:37 PM [facility] LAB NRBC Absolute 0.00 <0.10 K/mcL LAB HEMETOLOGY METHOD 03/22/2024 12:37 PM [facility] Blood Venous blood specimen / Unknown Venipuncture / Unknown 03/22/2024 6:00 AM EST 03/22/2024 12:05 PM EST us Piyush Street MD LAB BLOOD ORDERABLES Final Res ult [facility] [address] [place] [address], * (ABNORMAL) Basic metabolic panel (03/22/2024 6:00 AM EST) Sodium 140 133 - 145 mmol/L LAB CHEMISTRY METHOD 03/22/2024 1:25 PM [facility] Potassium 4.4 3.5 - 5.5 mmol/L LAB CHEMISTRY METHOD 03/22/2024 1:25 PM [facility] Chloride 103 96 - 110 mmol/L LAB CHEMISTRY METHOD 03/22/2024 1:25 PM [facility] CO2 30 21 - 32 mmol/L LAB CHEMISTRY METHOD 03/22/2024 1:25 PM [facility] Anion Gap 7 3 - 11 LAB CHEMISTRY METHOD 03/22/2024 1:25 PM [facility] Glucose 78 70 - 100 mg/dL LAB CHEMISTRY METHOD 03/22/2024 1:25 PM [facility] BUN 20 5 - 25 mg/dL LAB CHEMISTRY METHOD 03/22/2024 1:25 PM [facility] Creatinine 1.37(H) 0.50 - 1.10 mg/dL LAB CHEMISTRY METHOD 03/22/2024 1:25 PM [facility] eGFR 40(L) >=60 mL/min/1. 73m2 LAB CHEMISTRY METHOD 03/22/2024 1:25 PM [facility] Comment:Calculation based on the Chronic Kidney Disease Epidemiology Collaboration (CKD-EPI) equation refit without adjustment for race. BUN/Creatinine Ratio 14.6 LAB CHEMISTRY METHOD 03/22/2024 1:25 PM [facility] Calcium 9.1 8.5 - 10.5 mg/dL LAB CHEMISTRY METHOD 03/22/2024 1:25 PM [facility] Blood Venous blood specimen / Unknown Venipuncture / Unknown 03/22/2024 6:00 AM EST 03/22/2024 12:05 PM EST us Piyush Street MD LAB BLOOD ORDERABLES Final Res ult [facility] [address] [place] [address], documented in this encounter Visit Diagnoses Diagnosis Acquired absence of right knee documented in this encounter Care Teams Retail Wireless Sales Consultant Relationship Specialty Start Date End Date Chencho Bermudez MD [address] [facility] [place] [address] PCP - General 03/19/23 documented as of this encounter
--- OUTSIDE RECORDS SUMMARY | 2025-01-11 09:22 | XMS_ITS | Clinical Summary ---
Author Organization [address] Address [address] [place] [phone] Phone Care Team Providers Care Train Control Electronic Technician Name Role Phone Chencho Bermudez MD Primary Care Provider [phone] [phone] Medical History Medical History Date Comments Diabetes [...] age to complete this topic Care Teams Train Control Electronic Technician Relationship Specialty Start Date End Date Chencho Bermudez MD [address] [place] [address] PCP - General 03/19/23
--- NOTE | 2025-01-11 09:35 | PFT_ITS ---
Flows: FEV1: 96 % of predicted at 1.99 L FVC: 81 % of predicted at 2.24 L FEV1/FVC: 89 % Bronchodilator response: Absent Volumes: Total lung capacity: 79 % of predicted at 4.14 L Residual volume: 91 % of predicted at 2.10 L Slow vital capacity: 73 % of predicted at 2.04 L Expiratory reserve volume: 170 % of predicted at 1.20 L Diffusion capacity: Normal Impression: Mild restrictive ventilatory defect with no bronchodilator response. MTDD
[2025-01-11 09:38] VITALS: PULSE 82; O2SAT 100
== END 2025-01-11 09:03 | disposition home or self-care (01) ==
LOC: HO.RESP 09:02
PROVIDERS: PCP Internal Medicine; Visit Provider Nurse Practitioner Family
DX: Z01.818 Encounter for other preprocedural examination (principal); Z87.891 Personal history of nicotine dependence
CPT/HCPCS: 94010; 94640; 94727; 94729

== ENCOUNTER → 2025-01-11 09:35 | Outpatient (BNV) | payer MEDICARE, SELFPAY | PROVIDERS: PCP Internal Medicine; Visit Provider Internal Medicine Pulmonary Disease | DX: Z01.818 Encounter for other preprocedural examination (principal); Z87.891 Personal history of nicotine dependence | CPT/HCPCS: 94060; 94727; 94729 ==

== ENCOUNTER 2025-02-09 15:02 | Outpatient (AMB) | payer MEDICARE, SELFPAY ==
[2025-02-09 15:16] VITALS: BP 130/64; PULSE 83; O2SAT 98; BMI 35.1
--- NOTE | 2025-02-09 15:16 | A.OFFVIS_ITS ---
Vital Signs 02/09/25 15:16 Height 5 ft 6 in Weight 217 lb 8 oz BMI 35.1 BP 130/64 Blood Pressure Location Lt brachial Position Sitting Pulse 83 Pulse Source Pulse Oximeter Pulse Oximetry (%) 98 Oxygen Delivery Method Room Air Intake Visit Reasons: pulmonary nodule Allergies No Known Allergies Allergy (Verified 02/09/25 15:22) HPI HPI pulmonary nodule: Details: Cherelle is a pleasant 79 year old female, former 10 pack year smoker, quit 2019 with underlying h/o breast cancer s/p left lumpectomy 2018 and right lumpectomy 2000 and radiation maintained on anastrozole, HTN, DMII, HLD and anxiety. Today she is accompanied by her daughter. She was initially referred by PCP for pulmonary evaluation after incidental finding on abdominal CT 05/11/24 which revealed LLL nodule measuring 1.3 cm. Recommendations were made for PET vs [address] and she opted for repeat imaging. She had repeat CT in June 2024 which revealed lobulated 1.5 cm nodule in the lateral basal segment left lower lobe, appeared unchanged in morphology and size when compared with 05/11/2024 CT exam of the abdomen. She then had repeat CT in 3 months which revealed similar size of dominant left lingular pulmonary nodule measuring up to 1.8 cm. We had discussion regarding findings consistent with hamartoma however malignancy could not be excluded and opted for [address] in 3 months. Today she presents to review findings of chest CT as well as PFT. At this time patient denies any respiratory symptoms. She denies any visits to urgent care hospitalizations related to respiratory distress since last visit. [facility] Social History (Updated 02/09/25 @ 15:22 by Sadie Robbins [facility]) Patient Tobacco Use Status: Former Tobacco user Cigarettes Per Day: 4 Years Smoked: 35 years/ Quit 2019 in June Review of Systems Const Denies chills, Denies excessive sweating, Denies fever(s), Denies headache(s) and Denies night sweats Eyes Denies dry eyes, Denies irritation and Denies itchy eyes ENT Reports Normal hearing present, Denies headache(s), Denies nasal congestion, Denies nasal discharge, Denies post nasal drip and Denies sore throat Card Denies chest pain, Denies chest pain at rest, Denies chest pain with activity, Denies claudication, Denies leg edema, Denies dyspnea, Denies dyspnea on exertion, Denies orthopnea and Denies paroxysmal nocturnal dyspnea Resp Denies chest congestion, Denies cough, Denies excessive phlegm production, Denies pain on inspiration, Denies pain with cough, Denies dyspnea, Denies dyspnea on exertion, Denies stridor and Denies wheezing Musc Denies myalgias Neuro Reports Normal hearing present and Denies headache(s) Endo Denies excessive sweating Gustavo/Lymph Denies lymphadenopathy Aller/Immun Denies itchy eyes, Denies seasonal rhinorrhea and Denies wheezing Physical Exam Vital Signs: Last Vital Signs Pulse 83 02/09/25 15:16 BP 130/64 02/09/25 15:16 Pulse Ox 98 02/09/25 15:16 Oxygen Delivery Method Room Air 02/09/25 15:16 BMI result Body Mass Index 35.1 Const General: cooperative, healthy appearing, comfortable, no acute distress, well developed and alert Nutritional Appearance: obese Orientation/consciousness: patient oriented x3 Limitations: wheelchair HEENT Head: Yes normal to inspection, Yes normocephalic and Yes atraumatic Ears: hearing grossly normal bilaterally and external ears normal Eyes General: appearance normal, both eyes and all related structures Eyelids: Yes eyelids normal Sclerae: sclerae normal EOM: EOMs intact bilaterally Neck Neck: Yes normal visual inspection and Yes no lymphadenopathy Lymphatic: no lymphadenopathy noted Chest Chest palpation & inspection: normal inspection of the chest Resp Effort & Inspection: normal respiratory effort, able to speak in complete sentences, no audible wheezes, no cough, no stridor, not tachypneic, no tripod positioning and no use of accessory muscles Auscultation: clear to auscultation bilaterally Cardio Jugular venous distension: no JVD Rate: regular rate Rhythm: regular rhythm Skin Other: warm, dry General skin exam: no rashes or lesions noted Neuro General: patient oriented x3 Cranial nerves: Yes Normal hearing present Cognition (Neuro): normal cognition Extrem General: Yes normal to inspection, Yes capillary refill normal, Yes no clubbing, cyanosis or edema and Yes no pedal edema Psych Appearance: grossly normal and well kempt Speech and movement: Normal speech and movement present and Clear speech present Affect: normal affect Attitude: cooperative Thought process: Normal thought process present Thought content: Normal thought content present Insight: Good insight present (Psych) Judgement: Good judgement present (Psych) Results Reviewed Results Reviewed: [address] [address] [address] Scan Report Signed Patient: Cherelle Pearl MR#: [id number] : 1945 Acct:[id number] Age/Sex: 79 / F ADM Date: 01/07/25 Loc: HO.CT Attending Dr: Nataly Cash NP Ordering Physician: Nataly Cash NP Date of Service: 01/07/25 Procedure(s): CT chest wo IV con Accession Number(s): [id number] cc: Chencho Bermudez MD; Nataly Cash NP~ Report Number: [id number]: Total DLP = 216.00 mGy-cm EXAMINATION: CT CHEST WITHOUT CONTRAST CLINICAL INFORMATION: R91.1 - Solitary pulmonary nodule COMPARISON: 07/02/[address] [facility] [place] and outside CT A-P from 05/11/2024 TECHNIQUE: Multidetector volumetric CT imaging of the chest was done. Axial MIP volume rendering provided. Sagittal and coronal reformatted images were obtained. This CT examination was performed using dose optimization techniques as appropriate, variously including the following: *Automated exposure control *Adjustment of mA and/or kV according to patient size (this includes techniques or standardized protocols for targeted exams where dose is matched to indication/reason for exam; i.e. extremities or head) *Use of iterative reconstruction technique FINDINGS: LUNGS: Again noted is a solid pulmonary nodule in the anteromedial segment of the left lower lobe measuring 12 x 17 mm (AP by transverse), previously measuring 12 x 16 mm. There is low density within the nodule measuring -204 Hounsfield units (axial series CT #3. Image 359/537) consistent with gross fat. MEDIASTINUM: The mediastinum is normal. CORONARY ARTERY CALCIFICATION: Densely calcified PLEURA: There is no pleural effusion. No pleural mass or thickening. AXILLA: There are are surgical clips in the inferior right axillary region and branch calcifications in the right upper breast UPPER ABDOMEN: Gastric band is noted around the gastric fundus. OSSEOUS STRUCTURES: There is diffuse osteopenia. Flowing osteophytes are present in the anterior thoracic spine. There are also posterior disc osteophyte complex, more dense in the mid to upper thoracic spine. CT/CT chest wo IV con IMPRESSION: Stable solid pulmonary nodule in the anteromedial segment of the left lower lobe measuring 12 x 17 millimeter. 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 Electronically signed by: Ranjeet Bey MD 01/07/2025 02:03 PM EDT RP Dictated By: Ranjeet Bey MD Signed By: <Electronically signed by Ranjeet Bey MD in OV> 01/07/25 1403 DD/ 1314 TD/TT: 01/07/25 1325 Armor Senior Sergeant: Assessment & Plan Assessment & Plan (1) Pulmonary nodule 1 cm or greater in diameter: Code(s): R91.1 - Solitary pulmonary nodule Category: Medical (2) History of bilateral breast cancer: Code(s): Z85.3 - Personal history of malignant neoplasm of breast Category: Medical Plan Reviewed chest CT revealed stable solid pulmonary nodule in the anteromedial segment of the left lower lobe measuring 12 x 17 millimeter. 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 Again discussed recommendation for PET versus surveillance and opted for repeat chest CT in 6 months. Patient aware this could still be a malignant process but agreed to move forward with chest CT in 6 months to assess stability, order previously placed. Reviewed PFT which did not reveal any obstructive defect, and no significant response to bronchodilators. There was a slight decrease in total lung capacity suggestive of mild restrictive defect. DLCO within normal limits. Given respiratory exam is unremarkable today and patient denies any respiratory symptoms as well as no recent upper respiratory infection, she would be considered low risk for pulmonary complications for proposed upcoming knee replacement. This is going to be [facility] at [facility] with Dr. Polo later this fall. All questions were answered and patient is in agreement of plan. Will follow up to review results or sooner if needed. Coding Level of Care Code Est Pt Level 4 (85981) Diagnoses Pulmonary nodule 1 cm or greater in diameter R91.1 History of bilateral breast cancer Z85.3
--- OUTSIDE RECORDS SUMMARY | 2025-02-09 17:35 | XMS_ITS | Clinical Summary ---
Author Organization [address] Address [address] [place] [phone] Phone Care Team Providers Care Bead Wire Taper Name Role Phone Chencho Bermudez MD Primary Care Provider +1 [phone] Medical History Medical History Date Comments Diabetes [...] age to complete this topic Care Teams Bead Wire Taper Relationship Specialty Start Date End Date Chencho Bermudez MD [address] [place] [address] PCP - General 03/19/23
--- OUTSIDE RECORDS SUMMARY | 2025-02-09 17:35 | XMS_ITS | Encounter Summary ---
Author Organization [facility] Address [address] [place] [address] Care Team Providers Care Machine Set Up Name Role Phone Chencho Bermudez MD Primary Care Provider +1 [phone] Encounter Details Date Type Department Care Team (Late st Contact Info) Description 03/22/2024 Lab Requisition [facility] - Main Lab [address] [place] [address] MD [address] [place] [id number] Acquired absence of right knee Social History [...] AM EST) WBC 5.7 4.8 - 10.8 K/[facility] LAB HEMETOLOGY METHOD 03/22/2024 12:37 PM EST [facility] RBC 3.50(L) 3.80 - 4.80 M/[facility] LAB HEMETOLOGY METHOD 03/22/2024 12:37 PM [facility] Hemoglobin 9.8(L) 11.5 - 16.0 g/dL LAB HEMETOLOGY METHOD 03/22/2024 12:37 PM [facility] Hematocrit 32.3(L) 35.0 - 47.0 % LAB HEMETOLOGY METHOD 03/22/2024 12:37 PM [facility] MCV 91.5 79.0 - 98.0 FL LAB HEMETOLOGY METHOD 03/22/2024 12:37 PM [facility] MCH 27.8 27.0 - 32.0 pcg LAB HEMETOLOGY METHOD 03/22/2024 12:37 PM [facility] MCHC 30.3(L) 32.0 - 37.0 g/dL LAB HEMETOLOGY METHOD 03/22/2024 12:37 PM [facility] RDW 12.8 11.0 - 15.0 % LAB HEMETOLOGY METHOD 03/22/2024 12:37 PM [facility] Platelets 274 130 - 400 K/mcL LAB HEMETOLOGY METHOD 03/22/2024 12:37 PM [facility] MPV 9.7 7.0 - 11.0 FL LAB HEMETOLOGY METHOD 03/22/2024 12:37 PM [facility] NRBC 0.0 <1.0 % LAB HEMETOLOGY METHOD 03/22/2024 12:37 PM [facility] NRBC Absolute 0.00 <0.10 K/mcL LAB HEMETOLOGY METHOD 03/22/2024 12:37 PM [facility] Blood Venous blood specimen / Unknown Venipuncture / Unknown 03/22/2024 6:00 AM EST 03/22/2024 12:05 PM EST us Piyush Street MD LAB BLOOD ORDERABLES Final Res ult [facility] [address] [place] [address], * (ABNORMAL) Basic metabolic panel (03/22/2024 6:00 AM EST) Sodium 140 133 - 145 mmol/L LAB CHEMISTRY METHOD 03/22/2024 1:25 PM [facility] Potassium 4.4 3.5 - 5.5 mmol/L LAB CHEMISTRY METHOD 03/22/2024 1:25 PM [facility] Chloride 103 96 - 110 mmol/L LAB CHEMISTRY METHOD 03/22/2024 1:25 PM [facility] CO2 30 21 - 32 mmol/L LAB CHEMISTRY METHOD 03/22/2024 1:25 PM [facility] Anion Gap 7 3 - 11 LAB CHEMISTRY METHOD 03/22/2024 1:25 PM [facility] Glucose 78 70 - 100 mg/dL LAB CHEMISTRY METHOD 03/22/2024 1:25 PM [facility] BUN 20 5 - 25 mg/dL LAB CHEMISTRY METHOD 03/22/2024 1:25 PM [facility] Creatinine 1.37(H) 0.50 - 1.10 mg/dL LAB CHEMISTRY METHOD 03/22/2024 1:25 PM [facility] eGFR 40(L) >=60 mL/min/1. 73m2 LAB CHEMISTRY METHOD 03/22/2024 1:25 PM [facility] Comment:Calculation based on the Chronic Kidney Disease Epidemiology Collaboration (CKD-EPI) equation refit without adjustment for race. BUN/Creatinine Ratio 14.6 LAB CHEMISTRY METHOD 03/22/2024 1:25 PM [facility] Calcium 9.1 8.5 - 10.5 mg/dL LAB CHEMISTRY METHOD 03/22/2024 1:25 PM [facility] Blood Venous blood specimen / Unknown Venipuncture / Unknown 03/22/2024 6:00 AM EST 03/22/2024 12:05 PM EST us P[address]ush [address] MD LAB BLOOD ORDERABLES Final Res ult [facility] [address] [place] [address], documented in this encounter Visit Diagnoses Diagnosis Acquired absence of right knee documented in this encounter Care Teams Machine Set Up Relationship Specialty Start Date End Date Chencho eBrmudez MD [address] [place] [address] PCP - General 03/19/23 documented as of this encounter
== END 2025-02-09 15:50 | disposition home or self-care (01) ==
LOC: HO.HPSW 15:03
PROVIDERS: PCP Internal Medicine; Visit Provider Nurse Practitioner Family
DX: R91.1 Solitary pulmonary nodule (principal); Z85.3 Personal history of malignant neoplasm of breast
CPT/HCPCS: 99214

== ENCOUNTER → 2025-02-09 15:02 | Outpatient (BNVA) | payer MEDICARE, SELFPAY | PROVIDERS: PCP Internal Medicine; Visit Provider Nurse Practitioner Family | DX: R91.1 Solitary pulmonary nodule (principal); Z87.891 Personal history of nicotine dependence; Z85.3 Personal history of malignant neoplasm of breast | CPT/HCPCS: 99212 ==